=== PATIENT | female | born 1970 | race Caucasian/White ===

== ENCOUNTER 2017-02-03 19:22 | Emergency (ER) | payer MEDICARE ==
[2017-02-03] MEDS ORDERED: NS 0.9% 1000 ML* 1,000 ML IV ONE (19:40)
[2017-02-03] MEDS ORDERED: Ondansetron INJ* 2 MG/ML VIAL IV ONE (19:40)
[2017-02-03] MEDS ORDERED: Morphine INJ* 2 MG/ML 1 ML SYRINGE IV ONE ×2 (19:40→21:28)
[2017-02-03 20:01] LABS: Hematocrit 34 % (35-47); Hemoglobin 11.1 g/dl (12.0-16.0); Mean Corpuscular HGB Conc 33 g/dl (31-36); Mean Corpuscular Hemoglobin 31 pg (27-31); Mean Corpuscular Volume 93 fL (80-97); Mean Platelet Volume 8 um3 (7.4-10.4); Red Blood Count 3.61 10^6/ul (4.0-5.4); Red Cell Distribution Width 16 % (10.5-15); White Blood Count 7.3 10^3/ul (3.5-10.8)
[2017-02-03 20:16] LABS: Albumin 3.8 g/dL (3.2-5.2); BUN/Creatinine Ratio 15.2 (8-20); C Reactive Protein 2.06 mg/L (< 5.00); Calcium 9.2 mg/dL (8.6-10.3); EGFR African American 99.9 (>60); EGFR Non-African American 77.7 (>60); Globulin 2.7 g/dL (2-4); Magnesium 1.9 mg/dL (1.9-2.7); Potassium 3.8 mmol/L (3.5-5.0); Total Bilirubin 0.3 mg/dL (0.2-1.0); Total Protein 6.5 g/dL (6.4-8.9)
[2017-02-03] MEDS ORDERED: Iohexol 300* (CONTRAST) 10 ML SDV IV ONE (21:12)
--- NOTE | 2017-02-03 22:24 | RAD ---
INDICATION: LEFT lower quadrant abdominal pain which began in 10 days ago. Nausea, vomiting, diarrhea. Post appendectomy, partial hysterectomy, gastric bypass. COMPARISON: April 03, 2016 CT. TECHNIQUE: Multidetector CT images were obtained from the lung bases to the ischial tuberosities with 112 mL Omnipaque 300 IV and oral contrast. Multiplanar reformation. REPORT: Mild bibasilar dependent atelectasis. Enlarged 20 cm cephalocaudal liver with fatty infiltration. No CT abnormality of the gallbladder. Upper normal diameter of the common bile duct without change. Negative for pancreatic duct dilatation or other abnormality of the pancreas. Unremarkable spleen. Postsurgical change of Rajendra-en-Y gastric bypass without suspicious finding. Unremarkable small bowel loops. Post appendectomy. Enteric contrast extends to the transverse colon. The colon is completely decompressed from the splenic flexure distal. Negative for ascites, free air, hernias. Normal adrenal glands. Unremarkable kidneys with symmetric nephrograms and pyelograms. Negative for ureteral dilatation or other ureteral abnormality. Innumerable pelvic phleboliths present. Post hysterectomy. Unremarkable adnexal regions. Negative for lymphadenopathy. Normal diameter abdominal aorta and iliac arteries with mild atherosclerotic plaque. Physiologic distention of the IVC. Negative for suspicious osseous lesions. IMPRESSION: 1. Hepatomegaly and hepatic steatosis. 2. Post appendectomy. 3. Negative for bowel obstruction or acute pathologic process of the bowel. Postsurgical change of Rajendra-en-Y gastric bypass.
[2017-02-03 22:58] LABS: Urine Bacteria Absent (Absent); Urine Bilirubin Negative (Negative); Urine Glucose Negative (Negative); Urine Nitrite Negative (Negative)
--- NOTE | 2017-02-03 23:06 | ED ---
Joan Enriquez SooYoung, scribed for Denys Lockett MD on 02/03/17 at 1939 . Abdominal Pain/Female - HPI Summary HPI Summary: A 46 y/o F presents to ED with c/o LUQ pain initial onset 9-10 days ago, worsening today. Associated sx: vomiting/diarrhea. Pt states she believes it's "bathroom related." She saw her PCP who ordered lab work, but pt did not go have it done. Pt has been taking Mirolax. - History of Current Complaint Chief Complaint: EDAbdPain Stated Complaint: ABD PAIN Time Seen by Provider: 02/03/17 19:35 Hx Obtained From: Patient Onset/Duration: Lasting Days, Still Present Timing: Constant Severity Initially: Moderate Severity Currently: Severe Pain Intensity: 8 Pain Scale Used: 0-10 Numeric Location: Discrete At: LUQ Associated Signs and Symptoms: Positive: Vomiting, Diarrhea Allergies/Adverse Reactions: Allergies Allergy/AdvReac Type Severity Reaction Status Date / Time Erythromycin Allergy Severe Rash Verified 08/24/15 10:21 Nefazodone Allergy Severe Rash Verified 08/24/15 10:21 Ketorolac Tromethamine Allergy Mild See Comment Verified 08/24/15 10:21 [From Toradol] Cephalexin Allergy Unknown Verified 08/24/15 10:21 Reaction Details Fluconazole [From Diflucan] Allergy Hives Verified 08/24/15 10:21 Lamotrigine [From Lamictal] Allergy Rash And Verified 08/24/15 10:21 Itching Penicillins Allergy Swelling Verified 08/24/15 10:21 Of Face,Lips,& Throat Home Medications: Home Medications Ascorbic Acid TAB* [Vitamin C TAB*] 2,000 mg PO 02/03/17 [History] Calcium Carbonate CHEW TAB* [Tums*] 1,000 mg PO BID 02/03/17 [History Confirmed 02/03/17] Cholecalciferol [Vitamin D3] 2,000 mg PO DAILY 02/03/17 [History Confirmed 02/03] Multivitamins/Minerals TAB* [Thera M Plus TAB*] 1 tab PO DAILY 02/03/17 [ History Confirmed 02/03/17] Polyethylene Glycol 3350* [Miralax*] 17 gm PO DAILY 02/03/17 [History Confirmed 02/03/17] Vitamin E CAP* 400 unit PO DAILY 02/03/17 [History Confirmed 02/03/17] PMH/Surg Hx/FS Hx/Imm Hx Previously Healthy: No Endocrine/Hematology History: Reports: Hx Thyroid Disease Denies: Hx Anticoagulant Therapy, Hx Diabetes Cardiovascular History: Reports: Hx Angina, Hx Hypertension - periodically on meds Denies: Hx Congestive Heart Failure, Hx Hypercholesterolemia, Hx Pacemaker/ ICD Respiratory History: Reports: Hx Asthma, Hx Chronic Obstructive Pulmonary Disease (COPD) GI History: Reports: Hx Gastroesophageal Reflux Disease, Hx Ulcer - gerd, Other GI Disorders - gastric bypass History: Denies: Hx Dialysis, Hx Renal Disease Musculoskeletal History: Reports: Hx Back Problems, Hx Tendonitis Sensory History: Denies: Hx Hearing Aid Neurological History: Reports: Hx Seizures Denies: Hx Dementia, Hx Headaches Psychiatric History: Reports: Hx Attention Deficit Hyperactivity Disorder, Hx Depression, Hx Inpatient Treatment, Hx Community Mental Health Tx, Hx Schizophrenia - per , Hx Suicide Attempt - per patient "a long time ago" , Hx Substance Abuse Denies: Hx Anxiety, Hx Eating Disorder, Hx Panic Disorder, Hx Post Traumatic Stress Disorder, Hx Bipolar Disorder, Hx of Violent Episodes Against Others - Surgical History Surgery Procedure, Year, and Place: growths removed (larynx, knee, axilla); appendectomy; tubal ligation; two partial hysterrectomies; gastric bypass; carpal tunnel x 2 Hx Anesthesia Reactions: No - Immunization History Date of Tetanus Vaccine: Unk Date of Influenza Vaccine: None Infectious Disease History: Denies: Hx Clostridium Difficile, Hx Hepatitis, Hx Human Immunodeficiency Virus (HIV), Hx of Known/Suspected MRSA, Hx Shingles, Hx Tuberculosis, Hx Known/ Suspected VRE, Hx Known/Suspected VRSA, History Other Infectious Disease - denies, Traveled Outside the [place] in Last 30 Days - Family History Known Family History: Positive: Cardiac Disease - Social History Occupation: Disabled Lives: With Family Alcohol Use: None Alcohol Amount: denies Hx Substance Use: Yes Substance Use Type: Reports: Marijuana, Prescribed Substance Use Comment - Amount & Last Used: patient states she uses marijuana Hx Tobacco Use: Yes Smoking Status (MU): Former Smoker Type: Cigarettes Amount Used/How Often: 1 ppd Review of Systems Positive: Abdominal Pain, Vomiting, Diarrhea All Other Systems Reviewed And Are Negative: Yes Physical Exam Triage Information Reviewed: Yes Vital Signs On Initial Exam: Initial Vitals Temp Pulse Resp BP Pulse Ox 97 F 94 18 135/81 99 02/03/17 19:26 02/03/17 19:26 02/03/17 19:26 02/03/17 19:26 02/03/17 19:26 Vital Signs Reviewed: Yes Appearance: Positive: Well-Appearing, No Pain Distress Skin: Positive: Warm Head/Face: Positive: Normal Head/Face Inspection Eyes: Positive: BABAR ENT: Positive: Hearing grossly normal Neck: Positive: Supple Respiratory/Lung Sounds: Positive: Clear to Auscultation, Breath Sounds Present Cardiovascular: Positive: RRR Abdomen Description: Positive: Soft, Other: - mild diffuse tenderness Bowel Sounds: Positive: Present Musculoskeletal: Positive: Strength/ROM Intact Neurological: Positive: Sensory/Motor Intact, Alert, Oriented to Person Place, Time Psychiatric: Positive: Affect/Mood Appropriate Diagnostics - Vital Signs Vital Signs Temp Pulse Resp BP Pulse Ox 02/03/17 19:26 97 F 94 18 135/81 99 - Laboratory Lab Results: Lab Results 02/03/17 02/03/17 02/03/17 Range/Units 19:50 19:50 19:50 WBC 7.3 (3.5-10.8) 10^3/ul RBC 3.61 L (4.0-5.4) 10^6/ul Hgb 11.1 L (12.0-16.0) g/dl Hct 34 L (35-47) % MCV 93 (80-97) fL MCH 31 (27-31) pg MCHC 33 (31-36) g/dl RDW 16 H (10.5-15) % Plt Count 243 (150-450) 10^3/ul MPV 8 (7.4-10.4) um3 Neut % (Auto) 48.8 (38-83) % Lymph % (Auto) 37.9 (25-47) % Story % (Auto) 7.9 (1-9) % Eos % (Auto) 3.9 (0-6) % Baso % (Auto) 1.5 (0-2) % Absolute Neuts (auto) 3.5 (1.5-7.7) 10^3/ul Absolute Lymphs (auto) 2.8 (1.0-4.8) 10^3/ul Absolute Monos (auto) 0.6 (0-0.8) 10^3/ul Absolute Eos (auto) 0.3 (0-0.6) 10^3/ul Absolute Basos (auto) 0.1 (0-0.2) 10^3/ul Absolute Nucleated RBC 0.01 10^3/ul Nucleated RBC % 0.1 Sodium 135 (133-145) mmol/L Potassium 3.8 (3.5-5.0) mmol/L Chloride 103 (101-111) mmol/L Carbon Dioxide 25 (22-32) mmol/L Anion Gap 7 (2-11) mmol/L BUN 12 (6-24) mg/dL Creatinine 0.79 (0.51-0.95) mg/dL Est GFR ( Amer) 99.9 (>60) Est GFR (Non-Af Amer) 77.7 (>60) BUN/Creatinine Ratio 15.2 (8-20) Glucose 83 (70-100) mg/dL Lactic Acid 2.6 H* (0.5-2.0) mmol/L Calcium 9.2 (8.6-10.3) mg/dL Magnesium 1.9 (1.9-2.7) mg/dL Total Bilirubin 0.30 (0.2-1.0) mg/dL AST 15 (13-39) U/L ALT 13 (7-52) U/L Alkaline Phosphatase 78 (34-104) U/L C-Reactive Protein 2.06 (< 5.00) mg/L Total Protein 6.5 (6.4-8.9) g/dL Albumin 3.8 (3.2-5.2) g/dL Globulin 2.7 (2-4) g/dL Albumin/Globulin Ratio 1.4 (1-3) Lipase 10 L (11.0-82.0) U/L Urine Color Urine Appearance Urine pH (5-9) Ur Specific Garber (1.010-1.030) Urine Protein (Negative) Urine Ketones (Negative) Urine Blood (Negative) Urine Nitrate (Negative) Urine Bilirubin (Negative) Urine Urobilinogen (Negative) Ur Leukocyte Esterase (Negative) Urine WBC (Auto) (Absent) Urine RBC (Auto) (Absent) Ur Squamous Epith Cells (Absent) Urine Bacteria (Absent) Urine Glucose (Negative) Urine Ascorbic Acid (Negative) 02/03/17 Range/Units 22:44 WBC (3.5-10.8) 10^3/ul RBC (4.0-5.4) 10^6/ul Hgb (12.0-16.0) g/dl Hct (35-47) % MCV (80-97) fL MCH (27-31) pg MCHC (31-36) g/dl RDW (10.5-15) % Plt Count (150-450) 10^3/ul MPV (7.4-10.4) um3 Neut % (Auto) (38-83) % Lymph % (Auto) (25-47) % Story % (Auto) (1-9) % Eos % (Auto) (0-6) % Baso % (Auto) (0-2) % Absolute Neuts (auto) (1.5-7.7) 10^3/ul Absolute Lymphs (auto) (1.0-4.8) 10^3/ul Absolute Monos (auto) (0-0.8) 10^3/ul Absolute Eos (auto) (0-0.6) 10^3/ul Absolute Basos (auto) (0-0.2) 10^3/ul Absolute Nucleated RBC 10^3/ul Nucleated RBC % Sodium (133-145) mmol/L Potassium (3.5-5.0) mmol/L Chloride (101-111) mmol/L Carbon Dioxide (22-32) mmol/L Anion Gap (2-11) mmol/L BUN (6-24) mg/dL Creatinine (0.51-0.95) mg/dL Est GFR ( Amer) (>60) Est GFR (Non-Af Amer) (>60) BUN/Creatinine Ratio (8-20) Glucose (70-100) mg/dL Lactic Acid (0.5-2.0) mmol/L Calcium (8.6-10.3) mg/dL Magnesium (1.9-2.7) mg/dL Total Bilirubin (0.2-1.0) mg/dL AST (13-39) U/L ALT (7-52) U/L Alkaline Phosphatase (34-104) U/L C-Reactive Protein (< 5.00) mg/L Total Protein (6.4-8.9) g/dL Albumin (3.2-5.2) g/dL Globulin (2-4) g/dL Albumin/Globulin Ratio (1-3) Lipase (11.0-82.0) U/L Urine Color Straw Urine Appearance Clear Urine pH 5.0 (5-9) Ur Specific Garber 1.034 H (1.010-1.030) Urine Protein Negative (Negative) Urine Ketones Negative (Negative) Urine Blood Negative (Negative) Urine Nitrate Negative (Negative) Urine Bilirubin Negative (Negative) Urine Urobilinogen Negative (Negative) Ur Leukocyte Esterase 1+ H (Negative) Urine WBC (Auto) 1+(6-10/hpf) H (Absent) Urine RBC (Auto) Trace(0-2/hpf) (Absent) Ur Squamous Epith Cells Present H (Absent) Urine Bacteria Absent (Absent) Urine Glucose Negative (Negative) Urine Ascorbic Acid * H (Negative) Result Diagrams: 02/03/17 19:50 02/03/17 19:50 Lab Statement: Any lab studies that have been ordered have been reviewed, and results considered in the medical decision making process. - CT A/P CT with CT Interpretation: Positive (See Comments) - IMPRESSION: 1. Hepatomegaly and hepatic steatosis. 2. Post appendectomy. 3. Negative for bowel obstruction or acute pathologic process of the bowel. Postsurgical change of Rajendra-en-Y gastric bypass. CT Interpretation Completed By: Radiologist Re-Evaluation - Re-Evaluation First Eval Change: Improved Abdominal Pain Fem Course/Dx - Course Course Of Treatment: Pt is 46 y/o F presenting with worsening L-sided abd pain onset 10 days ago. Associated sx: n/v/d. Pt given Zofran and Morphine. UA shows specific gravity 1.034, leukocytes 1+, WBC 1+. A/P CT impression 1. Hepatomegaly and hepatic steatosis. 2. Post appendectomy. 3. Negative for bowel obstruction or acute pathologic process of the bowel. Postsurgical change of Rajendra-en-Y gastric bypass. Pt D/C home without meds. F/U with PCP. - Diagnoses Provider Diagnoses: Abdominal pain Discharge - Discharge Plan Condition: Improved Disposition: HOME Patient Education Materials: Acute Abdominal Pain (ED) Referrals: Christina Guadalupe MD [Primary Care Provider] - Additional Instructions: Follow up with your Primary Care Provider. Please return to the ED, if you experience new or worsening symptoms. The documentation as recorded by the scribe, VanDeMark,SooYoung accurately reflects the service I personally performed and the decisions made by me, Denys Lockett MD.
[2017-02-03 23:35] VITALS: BP 107/58
== END 2017-02-03 23:33 | disposition home or self-care (01) ==
LOC: ED 19:22
DX: R10.12 Left upper quadrant pain (principal); R11.10 Vomiting, unspecified; R19.7 Diarrhea, unspecified; Z87.891 Personal history of nicotine dependence
CPT/HCPCS: 36415; 74177; 80053; 81003; 81015; 83605; 83690; 83735; 85025; 86140; 87086; 96374; 96375; 99283; J2270; J2405; Q9967

== ENCOUNTER 2018-04-19 20:37 | Emergency (ER) | payer MEDICARE ==
--- NOTE | 2018-04-19 21:36 | ED ---
Lower Extremity - HPI Summary HPI Summary: 47 female presents with right knee pain for the past 3 weeks. She states that three weeks ago she kicked oak stool and developed the pain. She says that had a lot of bruising and swelling. she was placing ice on the area and it had been improving. She states that the swelling kind of resolved and then a week ago the swelling return. She denies any fevers. No rash. Has full range of motion of her knee. She admits to some weakness. No popping or locking. she took that one dose of ibuprofen without relief. - History of Current Complaint Chief Complaint: EDExtremityLower Stated Complaint: RT KNEE INJURY Time Seen by Provider: 04/19/18 20:50 Pain Intensity: 10 - Allergies/Home Medications Allergies/Adverse Reactions: Allergies Allergy/AdvReac Type Severity Reaction Status Date / Time cephalexin Allergy Unknown Verified 04/19/18 20:45 Reaction Details erythromycin base Allergy Rash Verified 04/19/18 20:45 fluconazole [From Diflucan] Allergy Rash Verified 04/19/18 20:45 ketorolac Allergy Itching Verified 04/19/18 20:45 lamotrigine [From Lamictal] Allergy Rash And Verified 04/19/18 20:45 Itching nefazodone Allergy Rash Verified 04/19/18 20:45 Penicillins Allergy Swelling Verified 04/19/18 20:45 Of Face,Lips,& Throat Home Medications: Home Medications Brexpiprazole (NF) [Rexulti 3 mg tab (NF)] 3 mg PO BEDTIME 04/19/18 [History Confirmed 04/19/18] cloNIDine TAB* [Catapres 0.1 MG TAB*] 0.2 mg PO DAILY 04/19/18 [History Confirmed 04/19/18] PMH/Surg Hx/FS Hx/Imm Hx Endocrine/Hematology History: Reports: Hx Thyroid Disease Denies: Hx Anticoagulant Therapy, Hx Diabetes Cardiovascular History: Reports: Hx Angina, Hx Hypertension - periodically on meds Denies: Hx Congestive Heart Failure, Hx Hypercholesterolemia, Hx Pacemaker/ ICD Respiratory History: Reports: Hx Asthma, Hx Chronic Obstructive Pulmonary Disease (COPD) GI History: Reports: Hx Gastroesophageal Reflux Disease, Hx Ulcer - gerd, Other GI Disorders - gastric bypass History: Denies: Hx Dialysis, Hx Renal Disease Musculoskeletal History: Reports: Hx Back Problems, Hx Tendonitis Sensory History: Denies: Hx Hearing Aid Neurological History: Reports: Hx Seizures Denies: Hx Dementia, Hx Headaches Psychiatric History: Reports: Hx Attention Deficit Hyperactivity Disorder, Hx Depression, Hx Inpatient Treatment, Hx Community Mental Health Tx, Hx Schizophrenia - per , Hx Suicide Attempt - per patient "a long time ago" , Hx Substance Abuse Denies: Hx Anxiety, Hx Eating Disorder, Hx Panic Disorder, Hx Post Traumatic Stress Disorder, Hx Bipolar Disorder, Hx of Violent Episodes Against Others - Surgical History Surgery Procedure, Year, and Place: growths removed (larynx, knee, axilla); appendectomy; tubal ligation; two partial hysterrectomies; gastric bypass; carpal tunnel x 2 Hx Anesthesia Reactions: No - Immunization History Date of Tetanus Vaccine: Unk Date of Influenza Vaccine: None Infectious Disease History: No Infectious Disease History: Denies: Hx Clostridium Difficile, Hx Hepatitis, Hx Human Immunodeficiency Virus (HIV), Hx of Known/Suspected MRSA, Hx Shingles, Hx Tuberculosis, Hx Known/ Suspected VRE, Hx Known/Suspected VRSA, History Other Infectious Disease - denies, Traveled Outside the [place] in Last 30 Days - Family History Known Family History: Positive: Cardiac Disease - Social History Alcohol Use: None Alcohol Amount: denies Hx Substance Use: Yes Substance Use Type: Reports: Marijuana, Prescribed Substance Use Comment - Amount & Last Used: patient states she uses marijuana Hx Tobacco Use: Yes Smoking Status (MU): Former Smoker Type: Cigarettes Amount Used/How Often: 1 ppd Review of Systems Negative: Fever Negative: Chest Pain Negative: Shortness Of Breath Positive: Myalgia - right knee pain All Other Systems Reviewed And Are Negative: Yes Physical Exam Triage Information Reviewed: Yes Vital Signs On Initial Exam: Initial Vitals Temp Pulse Resp BP Pulse Ox 97.0 F 95 14 135/95 100 04/19/18 20:39 04/19/18 20:39 04/19/18 20:39 04/19/18 20:39 04/19/18 20:39 Vital Signs Reviewed: Yes Appearance: Positive: Well-Appearing Skin: Positive: Warm, Dry Head/Face: Positive: Normal Head/Face Inspection Eyes: Positive: Normal, Conjunctiva Clear Respiratory/Lung Sounds: Positive: Clear to Auscultation, Breath Sounds Present Cardiovascular: Positive: Normal, RRR Musculoskeletal: Positive: Limited @ - right knee, Edema Right - knee, Other - good pulses Neurological: Positive: Normal Psychiatric: Positive: Normal Diagnostics - Vital Signs Vital Signs Temp Pulse Resp BP Pulse Ox 04/19/18 20:39 97.0 F 95 14 135/95 100 - Laboratory Lab Statement: Any lab studies that have been ordered have been reviewed, and results considered in the medical decision making process. - Radiology knee Xray Interpretation: Positive (See Comments) - IMPRESSION: Moderate size joint effusion without radiographically apparent bony abnormality. If the patient's symptoms persist, follow-up imaging is recommended. Radiology Interpretation Completed By: Radiologist Lower Extremity Course/Dx - Course Course Of Treatment: 47 female presents with right knee pain for the past 3 weeks. She states that three weeks ago she kicked oak stool and developed the pain. She says that had a lot of bruising and swelling. she was placing ice on the area and it had been improving. She states that the swelling kind of resolved and then a week ago the swelling return. She denies any fevers. No rash. Has full range of motion of her knee. She admits to some weakness. No popping or locking. she took that one dose of ibuprofen without relief. on exam no erythema. pos ballotment. neg anterior drawer and mcmurrary. does not appear like septic joint. will have follow up with ortho. told take ibuprofen more frequently. patient understand and agrees with plan. - Diagnoses Differential Diagnosis/HQI/PQRI: Positive: Fracture (Closed), Sprain, Strain Provider Diagnoses: Right knee pain Discharge - Sign-Out/Discharge Documenting (check all that apply): Discharge/Admit/Transfer - Discharge Plan Condition: Good Disposition: HOME Patient Education Materials: Knee Pain (ED) Referrals: Ham Hardy MD [Medical Doctor] - Christina Guadalupe MD [Primary Care Provider] - Additional Instructions: Use immobilizer Stay off knee as much as possible Ice, elevate, Ibuprofen or Tylenol every 6 hours for pain Follow up with ortho Return to ED if develop or any new or worsening symptoms - Billing Disposition and Condition Condition: GOOD Disposition: Home
--- NOTE | 2018-04-19 21:48 | RAD ---
INDICATION: 1 month of anterolateral right knee pain COMPARISON: None TECHNIQUE: 4 view radiograph of the right knee. FINDINGS: The visualized bones are well-corticated and properly aligned. The joint spaces are properly maintained. There is a moderate suprapatellar joint effusion. There is no acute fracture, dislocation or other focal bony abnormality. IMPRESSION: Moderate size joint effusion without radiographically apparent bony abnormality. If the patient's symptoms persist, follow-up imaging is recommended.
[2018-04-19] MEDS ORDERED: Ibuprofen TAB* 400 MG PO ONE (21:57)
[2018-04-19] MEDS ORDERED: Ibuprofen TAB* 800 MG PO ONE ×2 (21:58→21:59)
[2018-04-19 22:19] VITALS: BP 138/96
== END 2018-04-19 22:21 | disposition home or self-care (01) ==
LOC: ED 20:37
DX: M25.561 Pain in right knee (principal); M25.461 Effusion, right knee; E07.9 Disorder of thyroid, unspecified; I20.9 Angina pectoris, unspecified; I10 Essential (primary) hypertension; J44.9 Chronic obstructive pulmonary disease, unspecified; K21.9 Gastro-esophageal reflux disease without esophagitis; R56.9 Unspecified convulsions; F90.9 Attention-deficit hyperactivity disorder, unspecified type; F32.9 Major depressive disorder, single episode, unspecified; Z98.84 Bariatric surgery status; Z90.710 Acquired absence of both cervix and uterus; Z90.89 Acquired absence of other organs; Z88.1 Allergy status to other antibiotic agents; Z88.5 Allergy status to narcotic agent; Z88.0 Allergy status to penicillin; Z88.8 Allergy status to other drugs, medicaments and biological substances; Z87.891 Personal history of nicotine dependence; Z82.49 Family history of ischemic heart disease and other diseases of the circulatory system
CPT/HCPCS: 99282; A9270-GY

== ENCOUNTER 2018-09-19 19:32 | Emergency (ER) | payer MEDICARE ==
[2018-09-19] MEDS ORDERED: Haloperidol INJ IV/IM* 5 MG/ML AMP ONE (19:45)
[2018-09-19] MEDS ORDERED: LORazepam INJ* 2 MG/ML 1 ML VIAL ONE (19:45)
[2018-09-19] MEDS ORDERED: diPHENhydraMINE IV* 50 MG/ML 1 ml VIAL (BENADRYL) ONE (19:45)
--- NOTE | 2018-09-19 19:46 | ED ---
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 Per police, pt alleges that her is cheating, so she barricaded herself in the bathroom and made threats of killing herself to her . Police had to break into the bathroom to get to the patient. Per police, says that the pt is having medication complications that are making her irritable. Pt is yelling at bedside, ripping off her scrubs and is uncooperative with staff. At bedside: pt states her is why she is here, she c/o MILLER. Pt denies SI but states I want to kill everyone else. She also states wanting to kill her . Pt smokes marijuana daily. - History Of Current Complaint Time Seen by Provider: 09/19/18 19:36 Hx Obtained From: Patient, Other: - Police Onset/Duration: Still Present Timing: Constant Severity Initially: Severe Severity Currently: Severe Character: Angry Associated Signs And Symptoms: Positive: Hostile Related History: Positive For: Prior Psychiatric Issues Has Suicidal: Reports: Thoughts Has Homicidal: Reports: Thoughts - Allergies/Home Medications Allergies/Adverse Reactions: Allergies Allergy/AdvReac Type Severity Reaction Status Date / Time cephalexin Allergy Unknown Verified 09/19/18 19:57 Reaction Details erythromycin base Allergy Rash Verified 09/19/18 19:57 fluconazole [From Diflucan] Allergy Rash Verified 09/19/18 19:57 ketorolac Allergy Itching Verified 09/19/18 19:57 lamotrigine [From Lamictal] Allergy Rash And Verified 09/19/18 19:57 Itching nefazodone Allergy Rash Verified 09/19/18 19:57 Penicillins Allergy Swelling Verified 09/19/18 19:57 Of Face,Lips,& Throat PMH/Surg Hx/FS Hx/Imm Hx Previously Healthy: No Endocrine/Hematology History: Reports: Hx Thyroid Disease Denies: Hx Anticoagulant Therapy, Hx Diabetes Cardiovascular History: Reports: Hx Angina Denies: Hx Congestive Heart Failure, Hx Hypercholesterolemia, Hx Hypertension , Hx Pacemaker/ICD Respiratory History: Reports: Hx Asthma, Hx Chronic Obstructive Pulmonary Disease (COPD) GI History: Reports: Hx Gastroesophageal Reflux Disease, Hx Ulcer - gerd, Other GI Disorders - gastric bypass History: Denies: Hx Dialysis, Hx Renal Disease Musculoskeletal History: Reports: Hx Back Problems, Hx Tendonitis Sensory History: Denies: Hx Hearing Aid Neurological History: Reports: Hx Seizures Denies: Hx Dementia, Hx Headaches Psychiatric History: Reports: Hx Attention Deficit Hyperactivity Disorder, Hx Depression, Hx Inpatient Treatment, Hx Community Mental Health Tx, Hx Schizophrenia - per , Hx Suicide Attempt - per patient "a long time ago" , Hx Substance Abuse Denies: Hx Anxiety, Hx Eating Disorder, Hx Panic Disorder, Hx Post Traumatic Stress Disorder, Hx Bipolar Disorder, Hx of Violent Episodes Against Others - Surgical History Surgery Procedure, Year, and Place: growths removed (larynx, knee, axilla); appendectomy; tubal ligation; two partial hysterrectomies; gastric bypass; carpal tunnel x 2. LUMB IN LEFT EAR REMOVE 2013. TEETH REMOVED Hx Anesthesia Reactions: No - Immunization History Date of Tetanus Vaccine: Unk Date of Influenza Vaccine: None Infectious Disease History: Denies: Hx Clostridium Difficile, Hx Hepatitis, Hx Human Immunodeficiency Virus (HIV), Hx of Known/Suspected MRSA, Hx Shingles, Hx Tuberculosis, Hx Known/ Suspected VRE, Hx Known/Suspected VRSA, History Other Infectious Disease - denies, Traveled Outside the [place] in Last 30 Days - Family History Known Family History: Positive: Cardiac Disease - Social History Occupation: Unemployed, Disabled Lives: With Family Alcohol Use: None Alcohol Amount: denies Hx Substance Use: Yes Substance Use Type: Reports: Marijuana, Prescribed - pt does not mention use of Rx meds today Substance Use Comment - Amount & Last Used: patient states she uses marijuana Hx Tobacco Use: Yes - quit 5 years ago Smoking Status (MU): Former Smoker Type: Cigarettes Amount Used/How Often: 1 ppd Review of Systems - ROS Summary Review of Systems Summary: LEVEL 5 CAVEAT: ROS LIMITED DUE TO PT CONDITION, UNCOOPERATIVE Positive: Headache Psychological: Other - pos: hostile, SI, HI All Other Systems Reviewed And Are Negative: No Physical Exam - Summary Physical Exam Summary: General: Well appearing, no distress Cardiovascular: Skin is well perfused Pulmonary: No respiratory distress, no tachypnea Abdomen: Non-distended Skin: Warm, pink, dry Psych: Extremely agitated Neuro: A&Ox3 Triage Information Reviewed: Yes Vital Signs Reviewed: Yes Diagnostics - Laboratory Result Diagrams: 09/19/18 20:46 09/19/18 20:46 Lab Statement: Any lab studies that have been ordered have been reviewed, and results considered in the medical decision making process. 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 Per police, pt barricaded herself in the bathroom and made threats of killing herself to her . Pt is yelling at bedside, ripping off her scrubs and is uncooperative with staff. Pt denies SI at bedside but states I want to kill everyone else" and specifically her . Pt smokes marijuana daily. Pt will be chemically restrained. Lab work is unremarkable. Pt is medically clear for MHE at 2205. Sign out to Dr. Spence at shift change pending MHE. Discharge - Sign-Out/Discharge Documenting (check all that apply): Sign-Out Patient Signing out patient TO: Marina Spence - pending med clearance, MHE - Discharge Plan Referrals: Christina Guadalupe MD [Primary Care Provider] - - Attestation Statements Document Initiated by Scribe: Yes Documenting Scribe: Jose Franco Provider For Whom Scribe is Documenting (Include Credential): Dr. González Saez MD Scribe Attestation: I, Jose Franco, scribed for Dr. González Saez MD on 09/19/18 at 2205. - Assessment for Patient Restraint Evaluation of the Patient's Immediate Situation: Extremely agitated after alt with , law enforcement. Ripping scrubs off, screaming, being uncooperative. Patient's Medication and Behavioral Condition: Acute distress response, adjustment disorder Evaluate Need for Continued Restraint: Terminate
[2018-09-19] MEDS ORDERED: Nicotine Inhaler* 10 MG AMP INH PRN (19:48)
[2018-09-19] MEDS ORDERED: diPHENhydraMINE IV* 50 MG/ML 1 ml VIAL (BENADRYL) IM ONE (19:49)
[2018-09-19] MEDS ORDERED: LORazepam INJ* 2 MG/ML 1 ML VIAL IM ONE (19:49)
[2018-09-19] MEDS ORDERED: Haloperidol INJ IV/IM* 5 MG/ML AMP IM ONE (19:49)
[2018-09-19] MEDS ORDERED: KETAMINE HCL* 50 MG/ML 10 ML VIAL IM ONE (20:08)
[2018-09-19 20:51] LABS: ABS Basophils 0.1 10^3/ul (0-0.2); ABS Eosinophils 0 10^3/ul (0-0.6); ABS Lymphocytes 1.3 10^3/ul (1.0-4.8); ABS Monocytes 0.6 10^3/ul (0-0.8); ABS Neutrophils 5.3 10^3/ul (1.5-7.7); ABS Nucleated RBC 0 10^3/ul; Eosinophil % 0.4 % (0-6); Hematocrit 39 % (35-47); Hemoglobin 13.3 g/dl (12.0-16.0); Lymphocyte % 17.9 % (25-47); Mean Corpuscular HGB Conc 34 g/dl (31-36); Mean Corpuscular Hemoglobin 32 pg (27-31); Mean Corpuscular Volume 95 fL (80-97); Mean Platelet Volume 8.1 fL (7.4-10.4); Nucleated Red Blood Cells % 0; Platelet Count 204 10^3/ul (150-450); Red Blood Count 4.11 10^6/ul (4.00-5.40); Red Cell Distribution Width 15 % (10.5-15); White Blood Count 7.3 10^3/ul (3.5-10.8)
[2018-09-19 21:20] LABS: EGFR Non-African American 83.1 (>60)
--- NOTE | 2018-09-19 23:07 | ED ---
Progress - Progress Note Progress Note: Patient signed out from Dr. Saez to Dr. Spence pending MHE. Course/Dx - Course Course Of Treatment: Patient signed out from Dr. Saez to Dr. Spence pending MHE. Pt will be placed on MH hold for collateral. Pt signed ouit from Dr. Spence to Dr. Murrieta at shift change pending MH hold. Discharge - Sign-Out/Discharge Documenting (check all that apply): Sign-Out Patient, Receiving Sign-Out Signing out patient TO: Hamilton Murrieta Receiving patient FROM: González Saez - Discharge Plan Condition: Stable Referrals: Christina Guadalupe MD [Primary Care Provider] - - Attestation Statements Document Initiated by Scribe: Yes Documenting Scribe: Jeff Fallon Provider For Whom Scribe is Documenting (Include Credential): Marina Spence MD Scribe Attestation: Jeff Enriquez, scribed for Marina Spence MD on 09/20/18 at 0701.
[2018-09-20] MEDS ORDERED: Al Hydrox/Mg Hydrox/Simet LIQ* 30 ML UDC PO ONE (05:39)
[2018-09-20] MEDS ORDERED: Al Hydrox/Mg Hydrox/Simet LIQ* 30 ML UDC ONE (05:40)
[2018-09-20] MEDS ORDERED: Levothyroxine TAB* 25 MCG TAB PO ONE (08:41)
--- NOTE | 2018-09-20 08:59 | ED ---
Progress - Progress Note Progress Note: This pt was signed out from Dr. Spence at shift change, pending disposition, awaiting MHE. Pt had a mental health evaluation and case was reviewed by Dr. Stoddard, psychiatrist. Thoracic Surgeon reports he spoke with pt's therapist from [facility] who reported pt has chronic thoughts of violence towards others as well as SI but has never carried them out and believes the pt is safe for discharge. Dr. Stoddard cleared the pt for discharge. Therefore pt will be discharged with outpatient follow up at [facility] and with her therapist. Course/Dx - Diagnoses Provider Diagnoses: Depression Discharge - Sign-Out/Discharge Documenting (check all that apply): Patient Departure - Discharge home, Receiving Sign-Out Receiving patient FROM: Marina Spence - Discharge Plan Condition: Stable Disposition: HOME Patient Education Materials: Intimate Partner Violence (ED), Help Prevent Suicide (ED) Referrals: Christina Guadalupe MD [Primary Care Provider] - - Billing Disposition and Condition Condition: STABLE Disposition: Home - Attestation Statements Document Initiated by Scribe: Yes Documenting Scribe: Abbey Sagastume Provider For Whom Arabella is Documenting (Include Credential): Hamilton Murrieta MD Scribe Attestation: IAbbey, scribed for Hamilton Murrieta MD on 09/20/18 at 1800. Scribe Documentation Reviewed: Yes Provider Attestation: The documentation as recorded by the scribeAbbey accurately reflects the service I personally performed and the decisions made by me, Hamilton Murrieta MD
[2018-09-20 10:49] VITALS: BP 127/91
[2018-09-21] MEDS ORDERED: Levothyroxine TAB* 125 MCG TAB PO SCH (06:00)
== END 2018-09-20 10:52 | disposition home or self-care (01) ==
LOC: ED 19:32
DX: F32.9 Major depressive disorder, single episode, unspecified (principal); R45.851 Suicidal ideations; Z88.1 Allergy status to other antibiotic agents; Z88.5 Allergy status to narcotic agent; Z88.0 Allergy status to penicillin; Z87.891 Personal history of nicotine dependence
CPT/HCPCS: 36415; 80053; 80320; 80329; 84443; 85025; 99285; A9270-GY; G0480; J1200; J1630; J2060

== ENCOUNTER 2018-11-11 10:04 | Emergency (ER) | payer MEDICARE ==
--- NOTE | 2018-11-11 10:20 | ED ---
Psychiatric Complaint - HPI Summary HPI Summary: This patient is a 48 year old F brought in by police with a chief complaint of combativeness with verbal obscenities since just [employer]. 945 brought in by the corporate accounting manager department. She states she was breaking my husbands shit and he didn t like it. Patient reports extreme sadness and SI. The emergency department clerk said hello to the patient and she began weeping. The patient has been crying so hard she is coughing aggressively. The patient states, can you just kill me so I can be with my kid. - History Of Current Complaint Chief Complaint: EDMentalHealth Hx Obtained From: Patient Hx From Patient Unobtainable Due To: Altered Mental Status Onset/Duration: Sudden Onset Timing: Constant Character: Angry, Frustrated Associated Signs And Symptoms: Positive: Hostile, Paranoid Behavior Related History: Positive For: Prior Psychiatric Issues Has Suicidal: Reports: Thoughts - Allergies/Home Medications Allergies/Adverse Reactions: Allergies Allergy/AdvReac Type Severity Reaction Status Date / Time cephalexin Allergy Unknown Verified 11/11/18 10:20 Reaction Details erythromycin base Allergy Rash Verified 11/11/18 10:20 fluconazole [From Diflucan] Allergy Rash Verified 11/11/18 10:20 ketorolac Allergy Itching Verified 11/11/18 10:20 lamotrigine [From Lamictal] Allergy Rash And Verified 11/11/18 10:20 Itching nefazodone Allergy Rash Verified 11/11/18 10:20 Penicillins Allergy Swelling Verified 11/11/18 10:20 Of Face,Lips,& Throat Home Medications: Home Medications Albuterol inh POWDER (NF) [Proair Respiclick] 2 puff INH Q4HR PRN 11/11/18 [ History Confirmed 11/11/18] Amphetamine/Dextroamph ER(NF) [Adderal XR (NF)] 30 mg PO BID 11/11/18 [History Confirmed 11/11/18] Divalproex DR TAB(*) [Depakote DR(*)] 2,000 mg PO DAILY 11/11/18 [History Confirmed 11/11/18] Mirtazapine TAB* [Remeron TAB*] 15 mg PO BEDTIME 11/11/18 [History Confirmed 09/19] Nitroglycerin TAB 0.4 MG* 0.4 mg SL Q5M PRN 11/11/18 [History Confirmed 11/11/18 ] Omeprazole CAP (NF) [Prilosec CAP* 20 MG] 40 mg PO BID 11/11/18 [History Confirmed 11/11/18] cloNIDine TAB* [Catapres 0.1 MG TAB*] 0.1 mg PO BID 11/11/18 [History Confirmed 11/11/18] cloNIDine TAB* [Catapres 0.1 MG TAB*] 0.2 mg PO BEDTIME 11/11/18 [History Confirmed 11/11/18] PMH/Surg Hx/FS Hx/Imm Hx Endocrine/Hematology History: Reports: Hx Thyroid Disease Denies: Hx Anticoagulant Therapy, Hx Diabetes Cardiovascular History: Reports: Hx Angina Denies: Hx Congestive Heart Failure, Hx Hypercholesterolemia, Hx Hypertension , Hx Pacemaker/ICD Respiratory History: Reports: Hx Asthma, Hx Chronic Obstructive Pulmonary Disease (COPD) GI History: Reports: Hx Gastroesophageal Reflux Disease, Hx Ulcer - gerd, Other GI Disorders - gastric bypass History: Denies: Hx Dialysis, Hx Renal Disease Musculoskeletal History: Reports: Hx Back Problems, Hx Tendonitis Sensory History: Denies: Hx Hearing Aid Neurological History: Reports: Hx Seizures Denies: Hx Dementia, Hx Headaches Psychiatric History: Reports: Hx Attention Deficit Hyperactivity Disorder, Hx Depression, Hx Inpatient Treatment, Hx Community Mental Health Tx, Hx Schizophrenia - per , Hx Suicide Attempt - per patient "a long time ago" , Hx Substance Abuse Denies: Hx Anxiety, Hx Eating Disorder, Hx Panic Disorder, Hx Post Traumatic Stress Disorder, Hx Bipolar Disorder, Hx of Violent Episodes Against Others - Surgical History Surgery Procedure, Year, and Place: growths removed (larynx, knee, axilla); appendectomy; tubal ligation; two partial hysterrectomies; gastric bypass; carpal tunnel x 2. LUMB IN LEFT EAR REMOVE 2013. TEETH REMOVED Hx Anesthesia Reactions: No - Immunization History Date of Tetanus Vaccine: Unk Date of Influenza Vaccine: None Infectious Disease History: Denies: Hx Clostridium Difficile, Hx Hepatitis, Hx Human Immunodeficiency Virus (HIV), Hx of Known/Suspected MRSA, Hx Shingles, Hx Tuberculosis, Hx Known/ Suspected VRE, Hx Known/Suspected VRSA, History Other Infectious Disease - denies, Traveled Outside the [place] in Last 30 Days - Family History Known Family History: Positive: Cardiac Disease - Social History Alcohol Use: None Alcohol Amount: denies Hx Substance Use: Yes Substance Use Type: Reports: Marijuana, Prescribed - pt does not mention use of Rx meds today Substance Use Comment - Amount & Last Used: patient states she uses marijuana Hx Tobacco Use: Yes - quit 5 years ago Smoking Status (MU): Former Smoker Type: Cigarettes Amount Used/How Often: 1 ppd Review of Systems ENT: Other - crying, sadness Positive: Cough - from crying Positive: Other - hostile, combative All Other Systems Reviewed And Are Negative: Yes Physical Exam - Summary Physical Exam Summary: Appearance: The patient is well-nourished in no acute distress and in no acute pain. Skin: The skin is warm and dry and skin color reflects adequate perfusion. HEENT: The head is normocephalic and atraumatic. The pupils are equal and reactive. The conjunctivae are clear and without drainage. Nares are patent and without drainage. Mouth reveals moist mucous membranes and the throat is without erythema and exudate. The external ears are intact. The ear canals are patent and without drainage. The tympanic membranes are intact. Neck: The neck is supple with full range of motion and non-tender. There are no carotid bruits. There is no neck vein distension. Respiratory: Chest is non-tender. Lungs are clear to auscultation and breath sounds are symmetrical and equal. Cardiovascular: Heart is regular rate and rhythm. There is no murmur or rub auscultated. There is no peripheral edema and pulses are symmetrical and equal. Abdomen: The abdomen is soft and non-tender. There are normal bowel sounds heard in all four quadrants and there is no organomegaly palpated. Musculoskeletal: There is no back tenderness noted. Extremities are non-tender with full range of motion. There is good capillary refill. There is no peripheral edema or calf tenderness elicited. Neurological: Patient is alert and oriented to person, place and time. The patient has symmetrical motor strength in all four extremities. Cranial nerves are grossly intact. Deep tendon reflexes are symmetrical and equal in all four extremities. Psychiatric: The patient has an appropriate affect and does not exhibit any anxiety or depression. Triage Information Reviewed: Yes Vital Signs On Initial Exam: Initial Vitals Temp Pulse Resp BP Pulse Ox 96.3 F 116 20 90/66 97 11/11/18 10:06 11/11/18 10:06 11/11/18 10:06 11/11/18 10:06 11/11/18 10:06 Vital Signs Reviewed: Yes Diagnostics - Vital Signs Vital Signs Temp Pulse Resp BP Pulse Ox 11/11/18 10:06 96.3 F 116 20 90/66 97 - Laboratory Result Diagrams: 11/11/18 12:26 11/11/18 12:26 Lab Statement: Any lab studies that have been ordered have been reviewed, and results considered in the medical decision making process. Course/Dx - Course Course Of Treatment: Ms. Xie apparently got angry and was destroying possessions of her . The police were called and she was combative and brought to the emergency department. She is agitated on arrival here and this necessitated medication to keep her calm. She was nontoxic in appearance and a little tachycardic which resolved as she calmed down. She was medically cleared here and had a mental health evaluation. They felt that she was safe to go home now that she was calm and behaving rationally. There was some concern about a safe discharge as she was brought in a bathrobe and was now wearing scrubs and socks. She can be put in a cab to her house but apparently her left the house and locked it. She states that there is a window that is accessible which they always leave unlocked. I recommended to her that she stay here in the emergency department overnight and that we get her back into her apartment in the morning. She insisted on leaving this evening and I have no grounds to keep her against her will. - Differential Dx/Clinical Impression Provider Diagnosis: Situational disturbance Discharge - Sign-Out/Discharge Documenting (check all that apply): Patient Departure - Discharge Plan Condition: Stable Disposition: HOME Patient Education Materials: Mood Disorders (ED), Depression (ED) Referrals: Christina Guadalupe MD [Primary Care Provider] - - Billing Disposition and Condition Condition: STABLE Disposition: Home - Attestation Statements Document Initiated by Scribe: Yes Documenting Scribe: Endy Garrett Provider For Whom Arabella is Documenting (Include Credential): Alan Howell MD Scribe Attestation: Endy Enriquez, scribed for Alan Howell MD on 11/11/18 at 2053. Scribe Documentation Reviewed: Yes Provider Attestation: The documentation as recorded by the smithaibEndy smith accurately reflects the service I personally performed and the decisions made by me, Alan Howell MD Status of Scribe Document: Viewed
[2018-11-11] MEDS ORDERED: LORazepam INJ* 2 MG/ML 1 ML VIAL IM ONE ×2 (10:35→11:29)
[2018-11-11] MEDS ORDERED: Haloperidol INJ IV/IM* 5 MG/ML AMP IM ONE ×2 (10:35→11:29)
[2018-11-11] MEDS ORDERED: diPHENhydraMINE IV* 50 MG/ML 1 ml VIAL (BENADRYL) IM ONE (10:35)
[2018-11-11] MEDS ORDERED: Nicotine Inhaler* 10 MG AMP INH PRN (11:18)
[2018-11-11] MEDS ORDERED: Mouth Piece, Nicotine* 1 EACH CARTRIDGE INH PRN (11:21)
[2018-11-11] MEDS ORDERED: LORazepam INJ* 2 MG/ML 1 ML VIAL ONE (11:50)
[2018-11-11] MEDS ORDERED: Haloperidol INJ IV/IM* 5 MG/ML AMP ONE (11:50)
[2018-11-11 12:45] LABS: ABS Basophils 0.1 10^3/ul (0-0.2); ABS Eosinophils 0.1 10^3/ul (0-0.6); ABS Lymphocytes 1.7 10^3/ul (1.0-4.8); ABS Monocytes 0.9 10^3/ul (0-0.8); ABS Neutrophils 7.4 10^3/ul (1.5-7.7); ABS Nucleated RBC 0 10^3/ul; Eosinophil % 0.5 %; Hematocrit 38 % (35-47); Lymphocyte % 16.8 %; Mean Corpuscular HGB Conc 34 g/dl (31-36); Mean Corpuscular Hemoglobin 32 pg (27-31); Mean Corpuscular Volume 95 fL (80-97); Mean Platelet Volume 9.1 fL (7.4-10.4); Nucleated Red Blood Cells % 0; Platelet Count 236 10^3/ul (150-450); Red Blood Count 4.02 10^6/ul (4.00-5.40); Red Cell Distribution Width 15 % (10.5-15); White Blood Count 10.1 10^3/ul (3.5-10.8)
[2018-11-11 12:56] LABS: ALT 8 U/L (7-52); AST 18 U/L (13-39); Albumin 3.7 g/dL (3.2-5.2); Albumin/Globulin Ratio 1.3 (1-3); Alkaline Phosphatase 55 U/L (34-104); Anion Gap 9 mmol/L (2-11); BUN/Creatinine Ratio 18.1 (8-20); Blood Urea Nitrogen 13 mg/dL (6-24); CO2 Carbon Dioxide 23 mmol/L (22-32); Calcium 9.6 mg/dL (8.6-10.3); Chloride 107 mmol/L (101-111); EGFR African American 103.7 (>60); EGFR Non-African American 85.7 (>60); Globulin 2.9 g/dL (2-4); Glucose 89 mg/dL (70-100); Potassium 4.2 mmol/L (3.5-5.0); Sodium 139 mmol/L (135-145); Total Protein 6.6 g/dL (6.4-8.9)
[2018-11-11 13:28] LABS: Acetaminophen < 15 mcg/mL; Alcohol < 10 mg/dL (<10); Salicylate < 2.50 mg/dL (<30)
[2018-11-11 13:41] LABS: TSH (Thyroid Stimulating Horm) 1.47 mcIU/mL (0.34-5.60)
[2018-11-11 19:51] VITALS: BP 145/77
== END 2018-11-11 19:49 | disposition home or self-care (01) ==
LOC: ED 10:04
DX: F43.20 Adjustment disorder, unspecified (principal); Z87.891 Personal history of nicotine dependence; Z88.0 Allergy status to penicillin; F90.9 Attention-deficit hyperactivity disorder, unspecified type; F32.9 Major depressive disorder, single episode, unspecified; K21.9 Gastro-esophageal reflux disease without esophagitis
CPT/HCPCS: 36415; 80053; 80164; 80320; 80329; 84443; 85025; 96372; 99285; G0480; J1630; J2060

== ENCOUNTER 2019-06-08 00:27 | Emergency (ER) | payer MEDICARE, MEDICAID ==
[2019-06-08] MEDS ORDERED: Lidocaine 2% 10 ML* VIAL INJ ONE (00:54)
--- NOTE | 2019-06-08 00:55 | ED ---
Laceration/Wound HPI - HPI Summary HPI Summary: Patient complains of laceration to lateral right forearm after she had to break into her house tonight by breaking a window. Patient states she kicked in the glass and then tried to pull out the pieces with her hand and cut herself while doing so. Denies any other pain injury symptoms. No anti-coag. Tetanus status unknown. No history of diabetes or immunosuppression. - History of Current Complaint Stated Complaint: CUT WRIST PER PT Time Seen by Provider: 06/08/19 00:34 Hx Obtained From: Patient Mechanism of Injury: Sharp/Blunt Trauma Aggravating: Movement Onset Severity: Moderate Current Severity: Moderate Pain Intensity: 6 Pain Scale Used: 0-10 Numeric Associated Signs & Symptoms: Pain - Allergy/Home Medications Allergies/Adverse Reactions: Allergies Allergy/AdvReac Type Severity Reaction Status Date / Time cephalexin Allergy Unknown Verified 11/11/18 10:20 Reaction Details erythromycin base Allergy Rash Verified 11/11/18 10:20 fluconazole [From Diflucan] Allergy Rash Verified 11/11/18 10:20 ketorolac Allergy Itching Verified 11/11/18 10:20 lamotrigine [From Lamictal] Allergy Rash And Verified 11/11/18 10:20 Itching nefazodone Allergy Rash Verified 11/11/18 10:20 Penicillins Allergy Swelling Verified 11/11/18 10:20 Of Face,Lips,& Throat PMH/Surg Hx/FS Hx/Imm Hx Endocrine/Hematology History: Reports: Hx Thyroid Disease Denies: Hx Anticoagulant Therapy, Hx Diabetes Cardiovascular History: Reports: Hx Angina Denies: Hx Congestive Heart Failure, Hx Hypercholesterolemia, Hx Hypertension , Hx Pacemaker/ICD Respiratory History: Reports: Hx Asthma, Hx Chronic Obstructive Pulmonary Disease (COPD) GI History: Reports: Hx Gastroesophageal Reflux Disease, Hx Ulcer - gerd, Other GI Disorders - gastric bypass History: Denies: Hx Dialysis, Hx Renal Disease Musculoskeletal History: Reports: Hx Back Problems, Hx Tendonitis Sensory History: Denies: Hx Hearing Aid Opthamlomology History: Denies: Hx Legally Blind EENT History: Denies: Hx Deafness Neurological History: Reports: Hx Seizures Denies: Hx Dementia, Hx Headaches Psychiatric History: Reports: Hx Attention Deficit Hyperactivity Disorder, Hx Depression, Hx Inpatient Treatment, Hx Community Mental Health Tx, Hx Schizophrenia - per , Hx Suicide Attempt - per patient "a long time ago" , Hx Substance Abuse Denies: Hx Anxiety, Hx Eating Disorder, Hx Panic Disorder, Hx Post Traumatic Stress Disorder, Hx Bipolar Disorder, Hx of Violent Episodes Against Others - Surgical History Surgery Procedure, Year, and Place: growths removed (larynx, knee, axilla); appendectomy; tubal ligation; two partial hysterrectomies; gastric bypass; carpal tunnel x 2. LUMB IN LEFT EAR REMOVE 2013. TEETH REMOVED Hx Anesthesia Reactions: No - Immunization History Date of Tetanus Vaccine: Unk Date of Influenza Vaccine: None Infectious Disease History: No Infectious Disease History: Denies: Hx Clostridium Difficile, Hx Hepatitis, Hx Human Immunodeficiency Virus (HIV), Hx of Known/Suspected MRSA, Hx Shingles, Hx Tuberculosis, Hx Known/ Suspected VRE, Hx Known/Suspected VRSA, History Other Infectious Disease - denies, Traveled Outside the [place] in Last 30 Days - Family History Known Family History: Positive: Cardiac Disease - Social History Alcohol Use: None Alcohol Amount: denies Hx Substance Use: Yes Substance Use Type: Reports: Marijuana, Prescribed - pt does not mention use of Rx meds today Substance Use Comment - Amount & Last Used: patient states she uses marijuana Hx Tobacco Use: Yes - quit 5 years ago Smoking Status (MU): Former Smoker Type: Cigarettes Amount Used/How Often: 1 ppd Review of Systems Constitutional: Negative Eyes: Negative ENT: Negative Cardiovascular: Negative Respiratory: Negative Gastrointestinal: Negative Genitourinary: Negative Musculoskeletal: Negative Skin: Other Neurological: Negative Psychological: Normal All Other Systems Reviewed And Are Negative: Yes Physical Exam - Summary Physical Exam Summary: Laceration to lateral surface of distal right forearm. Patient has normal flexion and extension of right wrist as well as lateral and medial flexion. Full range of motion of fingers of right hand. Able to make a fist and fully extend. Triage Information Reviewed: Yes Vital Signs On Initial Exam: Initial Vitals Temp Pulse Resp BP Pulse Ox 97.4 F 102 30 158/123 98 06/08/19 00:29 06/08/19 00:29 06/08/19 00:29 06/08/19 00:06/08/19 00:29 Vital Signs Reviewed: Yes Appearance: Positive: Well-Appearing Skin: Positive: Warm Head/Face: Positive: Normal Head/Face Inspection Eyes: Positive: Normal Neck: Positive: Supple Respiratory/Lung Sounds: Positive: Clear to Auscultation Cardiovascular: Positive: Normal Abdomen Description: Positive: Nontender Musculoskeletal: Positive: Normal Neurological: Positive: Normal Psychiatric: Positive: Normal AVPU Assessment: Alert - [place] Coma Scale Best Eye Response: 4 - Spontaneous Best Motor Response: 6 - Obeys Commands Best Verbal Response: 5 - Oriented Coma Scale Total: 15 Procedures - Laceration/Wound Repair 1 Location: upper extremity - right forearm Description: Irregular Anesthesia: Local, 1.0% Length, Depth and Shape: 6cm x 1cm Betadine Prep?: No - chlorhexidine Irrigated w/ Saline (ccs): 500 Laceration/Wound Explored: clean Debridement: minimal Number of Sutures: 9 - 4.0 prolene Layer Closure?: No Sterile Dressing Applied?: No Diagnostics - Vital Signs Vital Signs Temp Pulse Resp BP Pulse Ox 06/08/19 00:29 97.4 F 102 30 158/123 98 - Laboratory Lab Statement: Any lab studies that have been ordered have been reviewed, and results considered in the medical decision making process. Laceration Repair Course/Dx - Course Course Of Treatment: Patient complains of laceration to lateral right forearm after she had to break into her house tonight by breaking a window. Patient states she kicked in the glass and then tried to pull out the pieces with her hand and cut herself while doing so. Denies any other pain injury symptoms. No anti-coag. Tetanus status unknown. No history of diabetes or immunosuppression. - Clinical Impression Provider Diagnoses: Laceration Discharge - Sign-Out/Discharge Documenting (check all that apply): Patient Departure Patient Received Moderate/Deep Sedation with Procedure: No - Discharge Plan Condition: Stable Disposition: HOME Prescriptions: Sulfamethox/Trimethoprim DS* [Bactrim DS 800/160 TAB*] 1 tab PO BID 10 Days #20 tab Patient Education Materials: Care For Your Stitches (ED), Laceration (ED) Referrals: Christina Guadalupe MD [Primary Care Provider] - Additional Instructions: Take antibiotics as directed. Starting later today he May wash wound with warm running water and soap. Do not submerge for 4 days. Keep covered with a antibiotic ointment and dressing. Turn to the ED for any new or worsening symptoms. - Billing Disposition and Condition Condition: STABLE Disposition: Home
[2019-06-08] MEDS ORDERED: Lidocaine 1% MPF ** 5 ML VIAL ONE ×2 (00:56→00:58)
[2019-06-08] MEDS ORDERED: Tetan/Diph/Pertus SYR(Tdap)* 0.5 ML SYR(BOOSTRIX) use SYR IM ONE (01:33)
[2019-06-08] MEDS ORDERED: Sulfamethox/Trimethoprim DS 800/160* TAB PO ONE (01:33)
[2019-06-08] MEDS ORDERED: oxyCODONE TAB* 5 MG TAB PO ONE (01:35)
[2019-06-08] MEDS ORDERED: Bacitracin OINTMENT* 0.5% 0.5 oz TUBE TOPICAL ONE (01:38)
[2019-06-08] MEDS ORDERED: Lidocaine 1% MPF ** 5 ML VIAL INJ ONE (02:05)
[2019-06-08 02:09] VITALS: BP 148/97
== END 2019-06-08 02:14 | disposition home or self-care (01) ==
LOC: ED 00:27
DX: S51.811A Laceration without foreign body of right forearm, initial encounter (principal); Z23 Encounter for immunization; W25.XXXA Contact with sharp glass, initial encounter; Y92.009 Unspecified place in unspecified non-institutional (private) residence as the place of occurrence of the external cause; J44.9 Chronic obstructive pulmonary disease, unspecified; K21.9 Gastro-esophageal reflux disease without esophagitis; E07.9 Disorder of thyroid, unspecified; Z87.891 Personal history of nicotine dependence; Z88.6 Allergy status to analgesic agent; Z88.1 Allergy status to other antibiotic agents; Z88.3 Allergy status to other anti-infective agents; Z88.0 Allergy status to penicillin; Z88.8 Allergy status to other drugs, medicaments and biological substances
CPT/HCPCS: 12002; 90471; 90715; 99282; A9270-GY

== ENCOUNTER 2019-09-10 11:02 | Emergency (ER) | payer MEDICARE, MEDICAID ==
[2019-09-10 14:02] VITALS: BP 120/83
--- NOTE | 2019-09-10 15:23 | ED ---
Lower Extremity - HPI Summary HPI Summary: Patient is a 48-year-old female who presents emergency department for injury to right ankle and knee that occurred last night. Patient states she was wrestling with a friend last night when she fell and injured right leg. Patient states she is unable to bear weight on to legs secondary to knee and ankle pain. No other injuries were sustained. Symptoms are mild in severity. Walking makes symptoms worse. Rest makes symptoms better. - History of Current Complaint Chief Complaint: EDExtremityLower Stated Complaint: POSS BROKEN RT ANKLE PER PT Time Seen by Provider: 09/10/19 12:03 Hx Obtained From: Patient Pain Intensity: 8 Pain Scale Used: 0-10 Numeric - Allergies/Home Medications Allergies/Adverse Reactions: Allergies Allergy/AdvReac Type Severity Reaction Status Date / Time cephalexin Allergy Unknown Verified 09/10/19 11:09 Reaction Details erythromycin base Allergy Rash Verified 09/10/19 11:09 fluconazole [From Diflucan] Allergy Rash Verified 09/10/19 11:09 ketorolac Allergy Itching Verified 09/10/19 11:09 lamotrigine [From Lamictal] Allergy Rash And Verified 09/10/19 11:09 Itching nefazodone Allergy Rash Verified 09/10/19 11:09 Penicillins Allergy Swelling Verified 09/10/19 11:09 Of Face,Lips,& Throat PMH/Surg Hx/FS Hx/Imm Hx Previously Healthy: Yes Endocrine/Hematology History: Reports: Hx Thyroid Disease Denies: Hx Anticoagulant Therapy, Hx Diabetes Cardiovascular History: Reports: Hx Angina Denies: Hx Congestive Heart Failure, Hx Hypercholesterolemia, Hx Hypertension , Hx Pacemaker/ICD Respiratory History: Reports: Hx Asthma, Hx Chronic Obstructive Pulmonary Disease (COPD) GI History: Reports: Hx Gastroesophageal Reflux Disease, Hx Ulcer - gerd, Other GI Disorders - gastric bypass History: Denies: Hx Dialysis, Hx Renal Disease Musculoskeletal History: Reports: Hx Back Problems, Hx Tendonitis Denies: Hx Rheumatoid Arthritis, Hx Osteoporosis Sensory History: Denies: Hx Legally Blind, Hx Deafness, Hx Hearing Aid Opthamlomology History: Denies: Hx Legally Blind Neurological History: Reports: Hx Seizures Denies: Hx Dementia, Hx Headaches Psychiatric History: Reports: Hx Attention Deficit Hyperactivity Disorder, Hx Depression, Hx Inpatient Treatment, Hx Community Mental Health Tx, Hx Schizophrenia - per , Hx Suicide Attempt - per patient "a long time ago" , Hx Substance Abuse Denies: Hx Anxiety, Hx Eating Disorder, Hx Panic Disorder, Hx Post Traumatic Stress Disorder, Hx Bipolar Disorder, Hx of Violent Episodes Against Others - Surgical History Surgery Procedure, Year, and Place: growths removed (larynx, knee, axilla); appendectomy; tubal ligation; two partial hysterrectomies; gastric bypass; carpal tunnel x 2. LUMB IN LEFT EAR REMOVE 2013. TEETH REMOVED Hx Anesthesia Reactions: No - Immunization History Date of Tetanus Vaccine: Unk Date of Influenza Vaccine: None Infectious Disease History: No Infectious Disease History: Denies: Hx Clostridium Difficile, Hx Hepatitis, Hx Human Immunodeficiency Virus (HIV), Hx of Known/Suspected MRSA, Hx Shingles, Hx Tuberculosis, Hx Known/ Suspected VRE, Hx Known/Suspected VRSA, History Other Infectious Disease - denies, Traveled Outside the [place] in Last 30 Days - Family History Known Family History: Positive: Cardiac Disease, Non-Contributory - Social History Occupation: Unemployed Lives: With Family Alcohol Use: Occasionally Alcohol Amount: denies Hx Substance Use: Yes Substance Use Type: Reports: Marijuana Substance Use Comment - Amount & Last Used: patient states she uses marijuana Hx Tobacco Use: Yes - quit 5 years ago Smoking Status (MU): Heavy Every Day Tobacco Smoker Type: Cigarettes Amount Used/How Often: 1 ppd Review of Systems Positive: Other - right ankle and knee pain Skin: Negative Neurological: Negative Negative: Weakness, Paresthesia, Numbness All Other Systems Reviewed And Are Negative: Yes Physical Exam Triage Information Reviewed: Yes Vital Signs On Initial Exam: Initial Vitals Temp Pulse Resp BP Pulse Ox 98.5 F 93 16 107/83 95 09/10/19 11:05 09/10/19 11:05 09/10/19 11:05 09/10/19 11:05 09/10/19 11:05 Vital Signs Reviewed: Yes Appearance: Positive: Well-Appearing - Pt. sitting in chair in NAD. Skin: Positive: Warm, Dry Head/Face: Positive: Normal Head/Face Inspection Eyes: Positive: Normal, EOMI, BABAR Neck: Positive: Supple Musculoskeletal: Positive: Other - Medial effusion to right knee. Quadriceps tendon intact. Lateral ankle pain. Achilles tendon intact. No breaks in the skin. Good pedal pulse. Neurological: Positive: Normal, CN Intact II-III Psychiatric: Positive: Affect/Mood Appropriate Procedures - Sedation Patient Received Moderate/Deep Sedation with Procedure: No Diagnostics - Vital Signs Vital Signs Temp Pulse Resp BP Pulse Ox 09/10/19 13:58 97.8 F 89 20 120/83 98 09/10/19 11:05 98.5 F 93 16 107/83 95 - Laboratory Lab Statement: Any lab studies that have been ordered have been reviewed, and results considered in the medical decision making process. Lower Extremity Course/Dx - Course Course Of Treatment: X-rays of ankle and foot are negative for fracture dislocation, reading per radiology. Knee x-ray shows effusion without facture dislocation, reading per radiology. Patient's friend who is present notes he has a brace at home patient can use as patient does not want a knee immobilizer. Crutches provided. Advised patient to ice and elevation intermittently. Tylenol or Motrin for pain as directed. To follow-up with PCP orthopedics for further evaluation if symptoms persist. Patient understands and agrees with plan. - Diagnoses Differential Diagnosis/HQI/PQRI: Positive: Dislocation, Fracture (Closed), Sprain, Strain Provider Diagnoses: Ankle sprain, Knee sprain Discharge ED - Sign-Out/Discharge Documenting (check all that apply): Patient Departure - Discharge Plan Condition: Good Disposition: HOME Patient Education Materials: Ankle Sprain (ED), Swollen Knee Joint (ED) Referrals: Denisse Ortiz MD [Medical Doctor] - Christina Guadalupe MD [Primary Care Provider] - Additional Instructions: Follow up with orthopedics if pain persist Ice and elevate intermittently Tylenol or Motrin for pain as directed Return to ER if symptoms change or worsen - Billing Disposition and Condition Condition: GOOD Disposition: Home - Attestation Statements Provider Attestation: I was available for consultation for this patient. I did not evaluate the patient or participate in any medical decision making or disposition decisions unless I am specifically named in the chart as having consulted on the patient. If I have consulted on the patient, please see my own ED note on the patient encounter. Chadwick Figueredo MD
== END 2019-09-10 13:58 | disposition home or self-care (01) ==
LOC: ED 11:02
DX: S93.401A Sprain of unspecified ligament of right ankle, initial encounter (principal); S83.91XA Sprain of unspecified site of right knee, initial encounter; W19.XXXA Unspecified fall, initial encounter; Y93.83 Activity, rough housing and horseplay; Y92.9 Unspecified place or not applicable; M25.461 Effusion, right knee; M85.871 Other specified disorders of bone density and structure, right ankle and foot; Z88.1 Allergy status to other antibiotic agents; Z88.5 Allergy status to narcotic agent; Z88.0 Allergy status to penicillin; Z88.8 Allergy status to other drugs, medicaments and biological substances; F17.210 Nicotine dependence, cigarettes, uncomplicated
CPT/HCPCS: 99282

== ENCOUNTER 2019-10-11 19:36 | Emergency (ER) | payer MEDICARE ==
[2019-10-11] MEDS ORDERED: Morphine 4 MG/ML VIAL (1 ml) 4 MG/ML VIAL IV ONE (21:50)
[2019-10-11] MEDS ORDERED: Ondansetron INJ* 2 MG/ML VIAL IV ONE (21:50)
--- NOTE | 2019-10-11 22:03 | ED ---
GI/ HPI - HPI Summary HPI Summary: 49-year-old female presents with back pain for the past couple days. She admits to urgency and frequency. She states she had some diarrhea that has since resolved. She said feels like she has a pressure in her back. She admits to some nausea but no vomiting. No pain into her legs. No injury. No loss of bladder or bladder. no saddle anasethsia. No fever. She took some Tylenol for the pain. Never had this pain before. Has had hysterectomy and her ovaries removed. Had an appendectomy. - History of Current Complaint Chief Complaint: EDFlankPain Time Seen by Provider: 10/11/19 21:37 Stated Complaint: BACK PAIN PER PT Pain Intensity: 7 - Allergy/Home Medications Allergies/Adverse Reactions: Allergies Allergy/AdvReac Type Severity Reaction Status Date / Time cephalexin Allergy Severe See Comment Verified 10/11/19 19:44 fluconazole [From Diflucan] Allergy Severe Rash Verified 10/11/19 19:44 lamotrigine [From Lamictal] Allergy Severe Rash And Verified 10/11/19 19:44 Itching Penicillins Allergy Severe Swelling Verified 10/11/19 19:44 Of Face,Lips,& Throat erythromycin base Allergy Intermediate Rash Verified 10/11/19 19:44 nefazodone Allergy Intermediate Rash And Verified 10/11/19 19:44 Itching ketorolac Allergy Unknown Itching Verified 10/11/19 19:44 lurasidone [From Latuda] AdvReac Severe See Comment Verified 10/11/19 19:44 sumatriptan [From Imitrex] AdvReac Severe See Comment Verified 10/11/19 19:44 PMH/Surg Hx/FS Hx/Imm Hx Endocrine/Hematology History: Reports: Hx Thyroid Disease Denies: Hx Anticoagulant Therapy, Hx Diabetes Cardiovascular History: Reports: Hx Angina Denies: Hx Congestive Heart Failure, Hx Hypercholesterolemia, Hx Hypertension , Hx Pacemaker/ICD Respiratory History: Reports: Hx Asthma, Hx Chronic Obstructive Pulmonary Disease (COPD) GI History: Reports: Hx Gastroesophageal Reflux Disease, Hx Ulcer - gerd, Other GI Disorders - gastric bypass History: Denies: Hx Dialysis, Hx Renal Disease Musculoskeletal History: Reports: Hx Back Problems, Hx Tendonitis Denies: Hx Rheumatoid Arthritis, Hx Osteoporosis Sensory History: Denies: Hx Legally Blind, Hx Deafness, Hx Hearing Aid Opthamlomology History: Denies: Hx Legally Blind Neurological History: Reports: Hx Seizures Denies: Hx Dementia, Hx Headaches Psychiatric History: Reports: Hx Attention Deficit Hyperactivity Disorder, Hx Depression, Hx Inpatient Treatment, Hx Community Mental Health Tx, Hx Schizophrenia - per , Hx Suicide Attempt - per patient "a long time ago" , Hx Substance Abuse Denies: Hx Anxiety, Hx Eating Disorder, Hx Panic Disorder, Hx Post Traumatic Stress Disorder, Hx Bipolar Disorder, Hx of Violent Episodes Against Others - Surgical History Surgery Procedure, Year, and Place: growths removed (larynx, knee, axilla). appendectomy; tubal ligation; two partial hysterrectomies;. 1995 gastric bypass ;. 2002 JAZZY carpal tunnel x 2. LUMP IN LEFT EAR REMOVE 2013 - LT EAR INNER EAR TUMOR REMOVED. TEETH REMOVED Hx Anesthesia Reactions: No - Immunization History Date of Tetanus Vaccine: Unk Date of Influenza Vaccine: None Infectious Disease History: No Infectious Disease History: Denies: Hx Clostridium Difficile, Hx Hepatitis, Hx Human Immunodeficiency Virus (HIV), Hx of Known/Suspected MRSA, Hx Shingles, Hx Tuberculosis, Hx Known/ Suspected VRE, Hx Known/Suspected VRSA, History Other Infectious Disease - denies, Traveled Outside the [place] in Last 30 Days - Family History Known Family History: Positive: Cardiac Disease, Non-Contributory - Social History Alcohol Use: Occasionally Alcohol Amount: denies Hx Substance Use: Yes Substance Use Type: Reports: Marijuana Substance Use Comment - Amount & Last Used: patient states she uses marijuana Hx Tobacco Use: Yes - quit 5 years ago Smoking Status (MU): Heavy Every Day Tobacco Smoker Type: Cigarettes Amount Used/How Often: 1 ppd Review of Systems Negative: Fever Negative: Chest Pain Negative: Shortness Of Breath Positive: Abdominal Pain, Diarrhea, Nausea. Negative: Vomiting Positive: flank pain. Negative: dysuria All Other Systems Reviewed And Are Negative: Yes Physical Exam Triage Information Reviewed: Yes Vital Signs On Initial Exam: Initial Vitals Temp Pulse Resp BP Pulse Ox 97.6 F 86 16 114/86 99 10/11/19 19:39 10/11/19 19:39 10/11/19 19:39 10/11/19 19:39 10/11/19 19:39 Vital Signs Reviewed: Yes Appearance: Positive: Well-Appearing Skin: Positive: Warm, Dry Head/Face: Positive: Normal Head/Face Inspection Eyes: Positive: Normal, Conjunctiva Clear ENT: Positive: Pharynx normal Respiratory/Lung Sounds: Positive: Clear to Auscultation, Breath Sounds Present Cardiovascular: Positive: Normal, RRR Abdomen Description: Positive: Soft, Other: - tenderness RLQ, tendernss left side of back. Negative: CVA Tenderness (R), CVA Tenderness (L) Bowel Sounds: Positive: Present Musculoskeletal: Positive: Normal, Other - good pulses, neg SLr Neurological: Positive: Normal Psychiatric: Positive: Normal Procedures - Sedation Patient Received Moderate/Deep Sedation with Procedure: No Diagnostics - Vital Signs Vital Signs Temp Pulse Resp BP Pulse Ox 10/11/19 19:39 97.6 F 86 16 114/86 99 - Laboratory Result Diagrams: 10/11/19 21:59 10/11/19 21:59 Lab Statement: Any lab studies that have been ordered have been reviewed, and results considered in the medical decision making process. - CT abd CT Interpretation Completed By: Radiologist Summary of CT Findings: IMPRESSION: 1. Borderline hepatomegaly. 2. Status post gastric bypass and hysterectomy. 3. Otherwise negative CT abdomen/pelvis. No renal or ureteral calculi are evident and there is no evidence of obstructive uropathy. GIGU Course/Dx - Course Course Of Treatment: 49-year-old female presents with back pain for the past couple days. She admits to urgency and frequency. She states she had some diarrhea that has since resolved. She said feels like she has a pressure in her back. She admits to some nausea but no vomiting. No pain into her legs. No injury. No loss of bladder or bladder. no saddle anasethsia. No fever. She took some Tylenol for the pain. Never had this pain before. Has had hysterectomy and her ovaries removed. Had an appendectomy. On exam has tenderness along left side back. Negative straight legs. neg CVA tenderness. Nontender abdomen. wbc normal. CT shows no acute findings. urine shows potential uti. will treat with bactrim. - Diagnoses Differential Diagnoses - Female: Diverticulitis, Urinary Tract Infection, Ureteral Calculi Provider Diagnoses: Back pain Discharge ED - Sign-Out/Discharge Documenting (check all that apply): Patient Departure - Discharge Plan Condition: Good Disposition: HOME Prescriptions: Cyclobenzaprine TAB* [Flexeril 10 MG TAB*] 10 mg PO BID PRN #10 tab PRN Reason: Pain - Moderate Sulfamethox/Trimethoprim DS* [Bactrim DS 800/160 TAB*] 1 tab PO BID #5 tab Patient Education Materials: Urinary Tract Infection in Women (ED), Back Pain ( ED) Referrals: Christina Guadalupe MD [Primary Care Provider] - Additional Instructions: Take muscle relaxers twice a day take bactrim twice a day for 3 days Use Tylenol for pain every 6 hours ice/heat area, move as much as possible Follow up with primary within 5 days Return to ED if develop any new or worsening symptoms - Billing Disposition and Condition Condition: GOOD Disposition: Home
[2019-10-11 22:08] LABS: ABS Basophils 0.1 10^3/ul (0-0.2); ABS Eosinophils 0.1 10^3/ul (0-0.6); ABS Monocytes 0.4 10^3/ul (0-0.8); ABS Neutrophils 2.7 10^3/ul (1.5-7.7); Eosinophil % 1.9 %; Hematocrit 33 % (35-47); Hemoglobin 11.2 g/dL (12.0-16.0); Lymphocyte % 47.8 %; Mean Corpuscular HGB Conc 34 g/dL (31-36); Mean Corpuscular Hemoglobin 33 pg (27-31); Mean Corpuscular Volume 96 fL (80-97); Mean Platelet Volume 7.7 fL (7.4-10.4); Nucleated Red Blood Cells % 0.1; Platelet Count 274 10^3/uL (150-450); Red Blood Count 3.37 10^6 /uL (3.70-4.87); Red Cell Distribution Width 15 % (10-15); White Blood Count 6.4 10^3/uL (3.5-10.8)
[2019-10-11 22:26] LABS: ALT 15 U/L (7-52); AST 20 U/L (13-39); Albumin 3.9 g/dL (3.2-5.2); Albumin/Globulin Ratio 1.7 (1-3); Alkaline Phosphatase 51 U/L (34-104); Anion Gap 5 mmol/L (2-11); BUN/Creatinine Ratio 19.7 (8-20); Blood Urea Nitrogen 15 mg/dL (6-24); C Reactive Protein < 1.00 mg/L (<8.01); CO2 Carbon Dioxide 27 mmol/L (22-32); Calcium 9.3 mg/dL (8.6-10.3); Chloride 106 mmol/L (101-111); EGFR African American 97.1 (>60); EGFR Non-African American 80.2 (>60); Globulin 2.3 g/dL (2-4); Glucose 106 mg/dL (70-100); Potassium 3.8 mmol/L (3.5-5.0); Sodium 138 mmol/L (135-145); Total Protein 6.2 g/dL (6.4-8.9)
[2019-10-12 01:25] LABS: Urine Appearance Cloudy; Urine Bilirubin Negative (Negative); Urine Blood Negative (Negative); Urine Color Amber; Urine Glucose Negative (Negative); Urine Ketones 1+ (Negative); Urine Nitrite Positive (Negative); Urine Protein Negative (Negative); Urine Specific Gravity 1.025 (1.010-1.030); Urine Urobilinogen Negative (Negative)
[2019-10-12] MEDS ORDERED: Sulfamethox/Trimethoprim DS 800/160* TAB PO ONE (01:29)
[2019-10-12 01:39] LABS: Urine Bacteria 1+ (Absent); Urine Red Blood Cell Trace(0-2/hpf) (Absent); Urine Squamous Epithelial Cell Present (Absent); Urine White Blood Cell 2+(11-20/hpf) (Absent)
[2019-10-12 02:57] VITALS: BP 0/0
== END 2019-10-12 01:40 | disposition home or self-care (01) ==
LOC: ED 19:36
DX: M54.9 Dorsalgia, unspecified (principal); E03.9 Hypothyroidism, unspecified; F17.210 Nicotine dependence, cigarettes, uncomplicated; R11.0 Nausea; R19.7 Diarrhea, unspecified
CPT/HCPCS: 36415; 74176; 80053; 81003; 81015; 83605; 83690; 85025; 86140; 87077; 87086; 87186; 96374; 96375; 99283; J2270; J2405

== ENCOUNTER 2020-05-01 13:30 | Inpatient (IN) ==
[2020-05-01 14:54] LABS: ABS Basophils 0.1 10^3/ul (0-0.2); ABS Eosinophils 0.2 10^3/ul (0-0.6); ABS Lymphocytes 2.6 10^3/ul (1.0-4.8); ABS Monocytes 0.5 10^3/ul (0-0.8); Eosinophil % 2.4 %; Hematocrit 43 % (35-47); Hemoglobin 14.6 g/dL (12.0-16.0); Lymphocyte % 36.8 %; Mean Corpuscular HGB Conc 34 g/dL (31-36); Mean Corpuscular Hemoglobin 32 pg (27-31); Mean Corpuscular Volume 95 fL (80-97); Mean Platelet Volume 8.5 fL (7.4-10.4); Nucleated Red Blood Cells % 0.2; Platelet Count 257 10^3/uL (150-450); Red Blood Count 4.52 10^6 /uL (3.70-4.87); Red Cell Distribution Width 16 % (10-15); White Blood Count 7.1 10^3/uL (3.5-10.8)
[2020-05-01 15:16] LABS: ALT 19 U/L (7-52); AST 20 U/L (13-39); Albumin 4.4 g/dL (3.2-5.2); Albumin/Globulin Ratio 1.4 (1-3); Alkaline Phosphatase 65 U/L (34-104); Anion Gap 5 mmol/L (2-11); BUN/Creatinine Ratio 14.6 (8-20); Blood Urea Nitrogen 12 mg/dL (6-24); CO2 Carbon Dioxide 26 mmol/L (22-32); Calcium 10.1 mg/dL (8.6-10.3); Chloride 109 mmol/L (101-111); EGFR African American 88.9 (>60); EGFR Non-African American 73.5 (>60); Globulin 3.1 g/dL (2-4); Glucose 166 mg/dL (70-100); Potassium 4.8 mmol/L (3.5-5.0); Sodium 140 mmol/L (135-145); Total Protein 7.5 g/dL (6.4-8.9)
[2020-05-01 15:20] LABS: Acetaminophen < 15 mcg/mL; Alcohol, S < 10 mg/dL (<10); Salicylate < 2.50 mg/dL (<30)
[2020-05-01 15:33] LABS: TSH (Thyroid Stimulating Horm) 5.58 mcIU/mL (0.34-5.60)
[2020-05-01] MEDS ORDERED: Nicotine PATCH 14 MG/24 HR PATCH TRANSDERM ONE (16:33)
[2020-05-01] MEDS ORDERED: LORazepam 1 mg TAB (*) PO ONE (17:22)
[2020-05-01] MEDS ORDERED: Haloperidol 5 mg/ml SDV IV/IM 5 MG/ML AMP IM ONE (17:33)
[2020-05-01] MEDS ORDERED: diPHENhydraMINE IV 50 MG/ML 1 ml VIAL (BENADRYL) ONE (17:34)
[2020-05-01] MEDS ORDERED: Haloperidol 5 mg/ml SDV IV/IM 5 MG/ML AMP ONE (17:35)
[2020-05-01] MEDS ORDERED: diPHENhydraMINE IV 50 MG/ML 1 ml VIAL (BENADRYL) IM ONE (17:35)
[2020-05-01] MEDS ORDERED: Albuterol HFA INHALER 8 gm MDI INH PRN (20:31)
[2020-05-01] MEDS: Mometasone/Formoter 200/5 MDI INH SCH (22:21)
[2020-05-01] MEDS: Divalproex DR 500 mg TAB(*) PO SCH (22:21)
[2020-05-02 08:00] LABS: HDL Cholesterol 69.4 mg/dL
[2020-05-02] MEDS: Nicotine PATCH 21 MG/24 HR PATCH TRANSDERM SCH (08:43)
[2020-05-02] MEDS: BREXPIPRAZOLE 3 MG PO SCH (08:43)
[2020-05-02] MEDS: Vitamin THERAPEUTIC TAB PO SCH (08:44)
[2020-05-02] MEDS: Mometasone/Formoter 200/5 MDI INH SCH ×2 (08:46→20:00)
[2020-05-02] MEDS: Nicotine GUM 2MG FRUIT FLAVOR PO PRN ×4 (09:09→18:45)
[2020-05-02] MEDS: Al Hydrox/Mg Hydrox/Simet LIQ 30 ML UDC PO PRN (19:31)
[2020-05-02] MEDS: Divalproex DR 500 mg TAB(*) PO SCH (20:36)
[2020-05-02] MEDS: SPIRIVA Respimat (tiotropium) 2.5 mcg/inh Inhaler INH SCH (20:37)
[2020-05-03] MEDS: Nicotine GUM 2MG FRUIT FLAVOR PO PRN ×3 (06:49→22:10)
[2020-05-03] MEDS: Vitamin THERAPEUTIC TAB PO SCH (07:52)
[2020-05-03] MEDS: Mometasone/Formoter 200/5 MDI INH SCH ×2 (07:52→21:51)
[2020-05-03] MEDS: BREXPIPRAZOLE 3 MG PO SCH (07:53)
[2020-05-03] MEDS: Nicotine PATCH 21 MG/24 HR PATCH TRANSDERM SCH (07:56)
[2020-05-03] MEDS: Al Hydrox/Mg Hydrox/Simet LIQ 30 ML UDC PO PRN (08:26)
[2020-05-03] MEDS ORDERED: Amphetamine/Dextroam ER 10(NF) 10 mg CAP.ER PO SCH (09:00)
[2020-05-03] MEDS: Amphetamine MIXED SALT 10mgTAB PO SCH (13:37)
[2020-05-03] MEDS: Docusate LIQ 100 MG/10 ML UDC PO PRN (13:50)
[2020-05-03] MEDS ORDERED: Amphetamine MIXED SALT 10mgTAB PO SCH (14:00)
[2020-05-03] MEDS: Divalproex DR 500 mg TAB(*) PO SCH (21:50)
[2020-05-03] MEDS: SPIRIVA Respimat (tiotropium) 2.5 mcg/inh Inhaler INH SCH (21:52)
[2020-05-04] MEDS: Amphetamine/Dextroam ER 10(NF) 10 mg CAP.ER PO SCH (06:55)
[2020-05-04] MEDS: Al Hydrox/Mg Hydrox/Simet LIQ 30 ML UDC PO PRN (08:25)
[2020-05-04] MEDS: Vitamin THERAPEUTIC TAB PO SCH (08:26)
[2020-05-04] MEDS: Nicotine PATCH 21 MG/24 HR PATCH TRANSDERM SCH (08:27)
[2020-05-04] MEDS: BREXPIPRAZOLE 3 MG PO SCH (09:24)
[2020-05-04] MEDS: Mometasone/Formoter 200/5 MDI INH SCH ×2 (09:27→21:28)
[2020-05-04] MEDS ORDERED: LORazepam 1 mg TAB (*) PO ONE (13:04)
[2020-05-04] MEDS: Amphetamine MIXED SALT 10mgTAB PO SCH (13:39)
[2020-05-04] MEDS: Divalproex DR 500 mg TAB(*) PO SCH (21:26)
[2020-05-04] MEDS: SPIRIVA Respimat (tiotropium) 2.5 mcg/inh Inhaler INH SCH (21:29)
[2020-05-05] MEDS: Amphetamine/Dextroam ER 10(NF) 10 mg CAP.ER PO SCH (07:03)
[2020-05-05] MEDS: BREXPIPRAZOLE 3 MG PO SCH (07:22)
[2020-05-05] MEDS: Vitamin THERAPEUTIC TAB PO SCH (08:19)
[2020-05-05] MEDS: Nicotine PATCH 21 MG/24 HR PATCH TRANSDERM SCH (08:19)
[2020-05-05] MEDS: Mometasone/Formoter 200/5 MDI INH SCH ×2 (08:20→22:17)
[2020-05-05] MEDS: Docusate LIQ 100 MG/10 ML UDC PO PRN (08:20)
[2020-05-05] MEDS: Amphetamine MIXED SALT 10mgTAB PO SCH (13:24)
[2020-05-05] MEDS: Divalproex DR 500 mg TAB(*) PO SCH (22:16)
[2020-05-05] MEDS: SPIRIVA Respimat (tiotropium) 2.5 mcg/inh Inhaler INH SCH (22:17)
[2020-05-06] MEDS: Nicotine PATCH 21 MG/24 HR PATCH TRANSDERM SCH (08:01)
[2020-05-06] MEDS: Mometasone/Formoter 200/5 MDI INH SCH ×2 (08:01→21:45)
[2020-05-06] MEDS: Vitamin THERAPEUTIC TAB PO SCH (08:01)
[2020-05-06] MEDS: Amphetamine/Dextroam ER 10(NF) 10 mg CAP.ER PO SCH (08:01)
[2020-05-06] MEDS: BREXPIPRAZOLE 3 MG PO SCH (08:46)
[2020-05-06] MEDS: Al Hydrox/Mg Hydrox/Simet LIQ 30 ML UDC PO PRN ×2 (08:58→12:56)
[2020-05-06] MEDS: Amphetamine MIXED SALT 10mgTAB PO SCH (12:54)
[2020-05-06] MEDS: Docusate LIQ 100 MG/10 ML UDC PO PRN (18:17)
[2020-05-06] MEDS: Divalproex DR 500 mg TAB(*) PO SCH (21:36)
[2020-05-06] MEDS: SPIRIVA Respimat (tiotropium) 2.5 mcg/inh Inhaler INH SCH (21:40)
[2020-05-06 22:25] VITALS: BP 123/73
[2020-05-07] MEDS: Amphetamine/Dextroam ER 10(NF) 10 mg CAP.ER PO SCH (07:36)
[2020-05-07] MEDS: Nicotine PATCH 21 MG/24 HR PATCH TRANSDERM SCH (07:37)
[2020-05-07] MEDS: Mometasone/Formoter 200/5 MDI INH SCH (08:51)
[2020-05-07] MEDS: Vitamin THERAPEUTIC TAB PO SCH (08:52)
== END 2020-05-07 11:55 | disposition home or self-care (01) | DRG 885 ==
LOC: ED 13:30 → BSU 21:00
PROVIDERS: ADMIT Psychiatry & Neurology Psychiatry; ATTEND Psychiatry & Neurology Psychiatry

== ENCOUNTER 2021-10-08 11:19 | Inpatient (IN) ==
[2021-10-08] MEDS ORDERED: NS 0.9% 1000 ml BAG 1,000 ML IV ONE (11:44)
[2021-10-08] MEDS ORDERED: Ondansetron 4 mg VIAL 2 MG/ML 2 ml VIAL IV ONE (11:45)
[2021-10-08] MEDS ORDERED: Morphine 4 MG/ML VIAL (1 ml) IV ONE (11:45)
[2021-10-08 12:18] LABS: ABS Basophils 0.1 10^3/ul (0-0.2); ABS Monocytes 0.4 10^3/ul (0-0.8); ABS Neutrophils 4.2 10^3/ul (1.5-7.7); Eosinophil % 0.3 %; Hematocrit 36 % (35-47); Lymphocyte % 17.6 %; Mean Corpuscular HGB Conc 34 g/dL (31-36); Mean Corpuscular Hemoglobin 31 pg (27-31); Mean Corpuscular Volume 93 fL (80-97); Mean Platelet Volume 7.8 fL (7.4-10.4); Platelet Count 362 10^3/uL (150-450); Red Blood Count 3.85 10^6 /uL (3.70-4.87); Red Cell Distribution Width 15 % (10-15); White Blood Count 5.7 10^3/uL (3.5-10.8)
[2021-10-08 12:39] LABS: ALT 11 U/L (7-52); AST 16 U/L (13-39); Albumin 3.6 g/dL (3.2-5.2); Albumin/Globulin Ratio 1.4 (1-3); Alkaline Phosphatase 70 U/L (35-149); Anion Gap 7 mmol/L (2-11); Blood Urea Nitrogen 10 mg/dL (6-24); CO2 Carbon Dioxide 26 mmol/L (22-32); Calcium 9.4 mg/dL (8.6-10.3); Chloride 108 mmol/L (101-111); Creatine Kinase 249 U/L (10-223); Globulin 2.5 g/dL (2-4); Glucose 111 mg/dL (70-100); Lipase 10 U/L (11.0-82.0); Magnesium 1.6 mg/dL (1.9-2.7); Potassium 3.8 mmol/L (3.5-5.0); Sodium 141 mmol/L (135-145); Total Protein 6.1 g/dL (6.4-8.9); eGFR CKD-EPI 104.4 (>60)
[2021-10-08] MEDS ORDERED: Magnesium Sulfate 2 gm BAG 2 GM/50 ML BAG IVPB ONE (12:46)
[2021-10-08 12:55] LABS: Influenza A Molecular Negative (Negative); Influenza B Molecular Negative (Negative); Rapid COVID-19 Molecular Undetected (Undetected)
[2021-10-08] MEDS ORDERED: Iohexol 300 (CONTRAST) 10 ML SDV IV ONE (13:07)
[2021-10-08 13:14] LABS: TSH Ultra Thyroid Stim Horm 2.93 mcIU/mL (0.34-5.60)
[2021-10-08 16:10] LABS: Acetaminophen < 15 mcg/mL; Alcohol, S < 13 mg/dL (<13); Salicylate < 2.50 mg/dL (<30)
[2021-10-08] MEDS ORDERED: LORazepam 2 mg VIAL 1 ml IM ONE (17:52)
[2021-10-08] MEDS ORDERED: Lorazepam PYXIS KEY PRN (17:52)
[2021-10-08] MEDS ORDERED: diPHENhydraMINE IV 50 MG/ML 1 ml VIAL (BENADRYL) IM ONE (17:52)
[2021-10-08] MEDS ORDERED: LORazepam 2 mg VIAL 1 ml ONE (17:52)
[2021-10-08] MEDS ORDERED: diPHENhydraMINE IV 50 MG/ML 1 ml VIAL (BENADRYL) ONE (17:52)
[2021-10-08] MEDS ORDERED: Al Hydrox/Mg Hydrox/Simet LIQ 30 ML UDC PO PRN (20:27)
[2021-10-08] MEDS ORDERED: diPHENhydraMINE 25 mg TAB PO PRN (20:33)
[2021-10-08] MEDS ORDERED: CMCS: Meloxicam 7.5 mg TAB (NF) PO PRN (20:37)
[2021-10-08] MEDS ORDERED: Ondansetron ODT 4 mg TAB 4 MG TAB PO PRN (20:47)
[2021-10-08] MEDS ORDERED: SPIRIVA Respimat (tiotropium) 2.5 mcg/inh Inhaler INH SCH (21:00)
[2021-10-08] MEDS ORDERED: Albuterol HFA INHALER 8 gm MDI INH PRN (21:08)
[2021-10-08] MEDS ORDERED: Calcium Carb (TUMS) 500 mg CHEW TAB PO PRN (21:20)
[2021-10-09] MEDS ORDERED: Mometasone/Formoter 200/5 MDI INH SCH (07:00)
[2021-10-09] MEDS ORDERED: BREXPIPRAZOLE 1 MG PO SCH (09:00)
[2021-10-09] MEDS ORDERED: Cholecalciferol (VIT D3) 1,000 unit TAB PO SCH (09:00)
[2021-10-09] MEDS ORDERED: Vitamin THERAPEUTIC TAB PO SCH (09:00)
[2021-10-09] MEDS ORDERED: Polyethylene Glycol 3350 17 GM PACKET PO PRN (12:16)
[2021-10-09] MEDS ORDERED: diPHENhydraMINE 25 mg TAB PO PRN (12:16)
[2021-10-09] MEDS ORDERED: Calcium Carb (TUMS) 500 mg CHEW TAB PO PRN (12:16)
[2021-10-09] MEDS ORDERED: Albuterol HFA INHALER 8 gm MDI INH PRN ×2 (12:16)
[2021-10-09] MEDS: AMPHETAMINE PO SCH (16:44)
[2021-10-09] MEDS: DEXTROAMPHETAMINE PO SCH (16:44)
[2021-10-09] MEDS: BREXPIPRAZOLE 1 MG PO SCH (16:45)
[2021-10-09] MEDS: Nicotine PATCH 21 MG/24 HR PATCH TRANSDERM SCH (16:46)
[2021-10-09] MEDS: SPIRIVA Respimat (tiotropium) 2.5 mcg/inh Inhaler INH SCH (18:42)
[2021-10-09] MEDS: Ondansetron ODT 4 mg TAB 4 MG TAB PO PRN (18:46)
[2021-10-09] MEDS ORDERED: SPIRIVA Respimat (tiotropium) 2.5 mcg/inh Inhaler INH SCH (19:00)
[2021-10-09] MEDS: Mometasone/Formoter 200/5 MDI INH SCH (19:45)
[2021-10-10 07:34] LABS: HDL Cholesterol 48.8 mg/dL
[2021-10-10] MEDS: Nicotine PATCH 21 MG/24 HR PATCH TRANSDERM SCH (08:54)
[2021-10-10] MEDS: DEXTROAMPHETAMINE PO SCH (08:57)
[2021-10-10] MEDS: AMPHETAMINE PO SCH (08:57)
[2021-10-10] MEDS: Cholecalciferol (VIT D3) 1,000 unit TAB PO SCH (08:57)
[2021-10-10] MEDS: BREXPIPRAZOLE 1 MG PO SCH (09:01)
[2021-10-10] MEDS: Mometasone/Formoter 200/5 MDI INH SCH ×2 (09:08→20:23)
[2021-10-10 11:37] LABS: Urine Appearance Cloudy; Urine Bacteria Absent (Absent); Urine Bilirubin Negative (Negative); Urine Blood Negative (Negative); Urine Color Yellow; Urine Glucose Negative (Negative); Urine Ketones Negative (Negative); Urine Nitrite Negative (Negative); Urine Protein Negative (Negative); Urine Red Blood Cell Absent (Absent); Urine Specific Gravity 1.009 (1.002-1.030); Urine Squamous Epithelial Cell Present (Absent); Urine Urobilinogen Negative (Negative); Urine White Blood Cell Trace(0-5/hpf) (Absent)
[2021-10-10 12:41] LABS: Urine Benzodiazepine Screen Presumptive Positive (None Detect); Urine Cannabinoids Screen Presumptive Positive (None Detect); Urine Opiates Screen None Detected (None Detect)
[2021-10-10] MEDS: Amphetamine MIXED SALT 10mgTAB PO SCH (14:56)
[2021-10-10] MEDS: Ondansetron ODT 4 mg TAB 4 MG TAB PO PRN (18:27)
[2021-10-10] MEDS: SPIRIVA Respimat (tiotropium) 2.5 mcg/inh Inhaler INH SCH (18:30)
[2021-10-11] MEDS: DEXTROAMPHETAMINE PO SCH (07:56)
[2021-10-11] MEDS: AMPHETAMINE PO SCH (07:56)
[2021-10-11] MEDS: Cholecalciferol (VIT D3) 1,000 unit TAB PO SCH (07:58)
[2021-10-11] MEDS: Mometasone/Formoter 200/5 MDI INH SCH ×2 (07:59→20:34)
[2021-10-11] MEDS: Nicotine PATCH 21 MG/24 HR PATCH TRANSDERM SCH (08:00)
[2021-10-11] MEDS: Ondansetron ODT 4 mg TAB 4 MG TAB PO PRN ×2 (08:10→17:12)
[2021-10-11] MEDS ORDERED: Amphetamine MIXED SALT 10mgTAB PO SCH (14:00)
[2021-10-11] MEDS: Amphetamine MIXED SALT 10mgTAB PO SCH (14:00)
[2021-10-11] MEDS: SPIRIVA Respimat (tiotropium) 2.5 mcg/inh Inhaler INH SCH (20:32)
[2021-10-12] MEDS: DEXTROAMPHETAMINE PO SCH (08:17)
[2021-10-12] MEDS: AMPHETAMINE PO SCH (08:17)
[2021-10-12] MEDS: Cholecalciferol (VIT D3) 1,000 unit TAB PO SCH (08:19)
[2021-10-12] MEDS: Nicotine PATCH 21 MG/24 HR PATCH TRANSDERM SCH (08:20)
[2021-10-12] MEDS: Mometasone/Formoter 200/5 MDI INH SCH ×2 (08:20→20:51)
[2021-10-12] MEDS: Ondansetron ODT 4 mg TAB 4 MG TAB PO PRN (08:22)
[2021-10-12] MEDS: Amphetamine MIXED SALT 10mgTAB PO SCH (13:55)
[2021-10-12] MEDS: SPIRIVA Respimat (tiotropium) 2.5 mcg/inh Inhaler INH SCH (20:54)
[2021-10-13] MEDS: AMPHETAMINE PO SCH (08:10)
[2021-10-13] MEDS: DEXTROAMPHETAMINE PO SCH (08:10)
[2021-10-13] MEDS: Cholecalciferol (VIT D3) 1,000 unit TAB PO SCH (08:11)
[2021-10-13] MEDS: Mometasone/Formoter 200/5 MDI INH SCH ×2 (08:13→20:59)
[2021-10-13] MEDS: Nicotine PATCH 21 MG/24 HR PATCH TRANSDERM SCH (08:14)
[2021-10-13] MEDS ORDERED: Flu vaccine *QUAD* 2021-22* 0.5 ML SYRINGE IM ONE (09:00)
[2021-10-13] MEDS ORDERED: Paliperidone SUSTENNA 234 MG/1.5 ML IM ONE (09:34)
[2021-10-13] MEDS: Amphetamine MIXED SALT 10mgTAB PO SCH (13:34)
[2021-10-13] MEDS: Ondansetron ODT 4 mg TAB 4 MG TAB PO PRN (19:25)
[2021-10-13] MEDS: SPIRIVA Respimat (tiotropium) 2.5 mcg/inh Inhaler INH SCH (20:55)
[2021-10-14] MEDS: AMPHETAMINE PO SCH (08:16)
[2021-10-14] MEDS: DEXTROAMPHETAMINE PO SCH (08:16)
[2021-10-14] MEDS: Cholecalciferol (VIT D3) 1,000 unit TAB PO SCH (08:18)
[2021-10-14] MEDS: Nicotine PATCH 21 MG/24 HR PATCH TRANSDERM SCH (08:20)
[2021-10-14] MEDS: Mometasone/Formoter 200/5 MDI INH SCH ×2 (08:21→20:49)
[2021-10-14] MEDS: Ondansetron ODT 4 mg TAB 4 MG TAB PO PRN ×2 (12:15→19:12)
[2021-10-14] MEDS ORDERED: Paliperidone SUSTENNA 156 MG/1 ML IM ONE (12:51)
[2021-10-14] MEDS: Amphetamine MIXED SALT 10mgTAB PO SCH (13:49)
[2021-10-14] MEDS: SPIRIVA Respimat (tiotropium) 2.5 mcg/inh Inhaler INH SCH (18:19)
[2021-10-15] MEDS: Nicotine PATCH 21 MG/24 HR PATCH TRANSDERM SCH (07:26)
[2021-10-15] MEDS: Cholecalciferol (VIT D3) 1,000 unit TAB PO SCH (08:22)
[2021-10-15] MEDS: DEXTROAMPHETAMINE PO SCH (08:22)
[2021-10-15] MEDS: AMPHETAMINE PO SCH (08:22)
[2021-10-15] MEDS: Mometasone/Formoter 200/5 MDI INH SCH (08:25)
[2021-10-15] MEDS: Ondansetron ODT 4 mg TAB 4 MG TAB PO PRN (08:33)
[2021-10-15 11:30] VITALS: BP 114/77
[2021-10-15] MEDS: Amphetamine MIXED SALT 10mgTAB PO SCH (13:47)
[2021-10-16] MEDS ORDERED: Paliperidone SUSTENNA 156 MG/1 ML IM ONE (12:30)
== END 2021-10-15 14:00 | disposition home or self-care (01) | DRG 885 ==
LOC: ED 11:19 → BSU 20:29
PROVIDERS: ADMIT Psychiatry & Neurology Psychiatry; ATTEND Psychiatry & Neurology Psychiatry